=== PATIENT | female | born 1980 | race Caucasian/White ===

== ENCOUNTER 2023-09-09 16:42 | Outpatient (OUT) | payer OTHER, SELFPAY ==
--- NOTE | 2023-09-09 16:51 | XR_ITS ---
The [address] [address] Patient Name: GÓMEZ BONILLA MRN: [id number] date: 1980 Sex: F Assigned Patient Location: [facility] Current Patient Location: [facility] Accession/Order Number: [id number] Exam Date: 09/09/2023 17:00 Report Date: 09/09/2023 19:33 At the request of: PREM COLBY Procedure: XR knee LT 3V EXAM: XR knee LT 3V HISTORY: knee pain M25.569 COMPARISON: None. TECHNIQUE: 3 views of the left knee were obtained. FINDINGS: There is no evidence of an acute fracture or dislocation. The joint spaces are intact. No osteochondral injury is identified. There is no evidence of a joint effusion. XR/XR knee LT 3V IMPRESSION: No acute fracture or dislocation. The joint spaces are intact without a joint effusion. Electronically authenticated by: SOLEDAD STEEN Date: 09/09/2023 19:33
== END 2023-09-09 16:43 | disposition home or self-care (01) ==
LOC: RAD 16:45
PROVIDERS: PCP Family Medicine; Visit Provider Family Medicine
DX: M25.562 Pain in left knee (principal)
CPT/HCPCS: 73562

== ENCOUNTER 2023-10-23 11:46 | Outpatient (OUT) | payer OTHER, SELFPAY ==
--- OUTSIDE RECORDS SUMMARY | 2023-10-23 11:50 | XMS_ITS | CCD ---
Author Name Unknown Address [address] [place] [address] Organization [facility] Care Team Providers Care Autistic Teacher Name Role Phone SU SERNA Referring Unavailable SU SERNA Primary Care Unavailable ENRIQUE STACY Attending Unavailable Beatriz Patten Primary Care Physician MARTÍNEZ AVILA Attending Unavailable MARTÍNEZ AVILA Consulting Unavailable MARTÍNEZ AVILA Admitting Unavailable KETVERTSU ANDRES Primary Care Unavailable SU SERNA Attending Unavailable SU SERNA Consulting Unavailable KETVERTSU ANDRES Primary Care Unavailable SINDYVERTSU ANDRES Admitting Unavailable KETVERTSU ANDRES Attending Unavailable SU SERNA Referring Unavailable KETVERTSU ANDRES Referring Unavailable SINDYVERTSU ANDRES Attending Unavailable SindyvertSu andres MD Primary Care Provider [phone] Michele Rutledge Attending Unavailab le Michele Rutledge Admitting Unavailab le Daphne Su Primary Care Unavailable Allergies Allergy Classification Reported Allergen(s) Allergy Type Date of Onset Reaction(s) Facility (1 source) Acetaminophen Drug Allergy [facility] (1 source) Acetaminophen / HYDROcodone Drug Allergy 3 [facility] (1 source) buPROPion Drug Allergy 6 [facility] (1 source) pregabalin Drug Allergy 0 [facility] (3 sources) Acetaminophen Drug Allergy 3 [facility] (3 sources) Acetaminophen / HYDROcodone Drug Allergy 3 [facility] (3 sources) buPROPion Drug Allergy 3 [facility] (3 sources) HYDROcodone Drug Allergy 3 [facility] (3 sources) Pregabalin Allergy to substance 3 [facility] (2 sources) Morphine Drug Allergy 1 Itching [facility] (1 source) Acetaminophen Drug Allergy 2 [facility] Repository (1 source) buPROPion Drug Allergy 1 [facility] (1 source) HYDROcodone Drug Allergy 1 [facility] (1 source) Morphine Drug Allergy 1 [facility] (1 source) pregabalin Drug Allergy 1 [facility] Medications Current Medications Medication Drug Class(es) Dates Sig (Normalized) Sig (Original) acetaZOLAMIDE 250 mg oral tablet (3 sources) Carbonic Anhydrase Inhibitor Start: 09-09-2023 take 2 tablets by mouth once daily acetaZOLAMIDE (Diamox) 250 MG tablet Indications: Intracranial hypertension Take 2 tablets by mouth once daily. 180 tablet 1 09/09/2023 Active 1 ml erenumab-aooe 140 mg/ml auto-injector (3 sources) Start: 06-23-2023 inject 1 mL by subcutaneous injection every month erenumab (Aimovig) 140 MG/ML injection Indications: Other migraine without status migrainosus, not intractable (CMS/HCC) inject 1 milliliter ( 140 milligrams ) subcutaneously Every Month 1 mL 3 06/23/2023 Active famotidine 20 mg oral tablet (3 sources) Histamine-2 Receptor Antagonist Start: 08-30-2023 take 1 tablet by mouth at bedtime famotidine (Pepcid) 20 MG tablet Indications: Gastroesophageal reflux disease without esophagitis take 1 tablet by mouth at bedtime if needed 90 tablet 0 08/30/2023 Active hydrOXYzine pamoate 50 mg oral capsule (3 sources) Antihistamine Start: 08-27-2023 take 1 capsule by mouth three times daily hydrOXYzine pamoate (Vistaril) 50 MG capsule Indications: Anxiety take 1 capsule by mouth three times a day 270 capsule 0 08/27/2023 Active Ibuprofen (3 sources) Nonsteroidal Anti-inflammatory Drug Ibuprofen (MOTRIN PO ) Motrin 0 Active Multiple Vitamins-Minerals (MULTI FOR HER 50+ PO) (3 sources) Multiple Vitamins-Minerals (MULTI FOR HER 50+ PO) Multi For Her 0 Active nitrofurantoin, macrocrystals 25 mg / nitrofurantoin, monohydrate 75 mg oral capsule (2 sources) Nitrofuran Antibacterial Start: 09-28-2023 End: 10-12-2023 take 1 capsule by mouth in the morning nitrofurantoin, macrocrystal-monohydr ate, (Macrobid) 100 MG capsule Indications: Acute cystitis without hematuria Take 1 capsule (100 mg) by mouth in the morning and 1 capsule (100 mg) before bedtime. Do all this for 14 days. 28 capsule 0 09/28/2023 10/12/2023 Active SUMAtriptan 100 mg oral tablet (3 sources) Serotonin-1b and Serotonin-1d Receptor Agonist Start: 09-09-2023 take 1 tablet by mouth every two hours, then take 2 tablets by mouth every twenty-four hours SUMAtriptan (Imitrex) 100 MG tablet Indications: Other migraine without status migrainosus, not intractable (CMS/HCC) TAKE 1 TABLET BY MOUTH AT ONSET OF HEADACHE - MAY REPEAT IN 2 HOURS IF NEEDED - MAX 2 TABLETS IN 24 HOURS 27 tablet 1 09/09/2023 Active tiZANidine 4 mg oral tablet (3 sources) Central alpha-2 Adrenergic Agonist Start: 09-09-2023 take 2 tablets by mouth at bedtime as needed tiZANidine (Zanaflex) 4 MG tablet Indications: Muscle cramp Take 2 tablets by mouth at bedtime as needed. 60 tablet 2 09/09/2023 Active Problems Active Problems Problem Classification Problem Date Documented Da te Episodic/Chronic Abdominal pain (1 source) Epigastric pain; Translations: [EPIGASTRIC PAIN] Onset: 01-18-2023 Episodic Anxiety disorders (3 sources) Generalized anxiety disorder; Translations: [Generalized anxiety disorder] Onset: 04-01-2023 04-01-2023 Chronic Genitourinary symptoms and ill-defined conditions (3 sources) Incontinence; Translations: [Unspecified urinary incontinence] Onset: 04-01-2023 04-01-2023 Chronic Genitourinary symptoms and ill-defined conditions (4 sources) Dysuria; Translations: [Dysuria] 09-28-2023 Episodic Headache; including migraine (11 sources) Refractory migraine with aura; Translations: [Migraine with aura, intractable, without status migrainosus] Onset: 04-01-2023 04-01-2023 Chronic Immunizations and screening for infectious disease (1 source) Encounter for screening for infections with a predominantly sexual mode of transmission; Translations: [ENC SCREEN INFECTIONS SEXL TRANSMS] Onset: 01-18-2023 Episodic Lymphadenitis (2 sources) Hilar lymphadenopathy ; Translations: [Localized enlarged lymph nodes] 09-28-2023 Episodic Noninfectious gastroenteritis (2 sources) Chronic diarrhea; Translations: [Noninfective gastroenteritis and colitis, unspecified] 09-28-2023 Episodic Other connective tissue disease (5 sources) Fibromyalgia; Translations: [Fibromyalgia] Onset: 04-01-2023 04-01-2023 Episodic Other gastrointestinal disorders (2 sources) History of gastritis; Translations: [Personal history of other diseases of the digestive system] 09-28-2023 Episodic Other lower respiratory disease (2 sources) Dyspnea; Translations: [Shortness of breath] 09-28-2023 Episodic Other nervous system disorders (3 sources) Chiari malformation type I; Translations: [Compression of brain] Onset: 04-01-2023 04-01-2023 Chronic Other nervous system disorders (3 sources) Left leg peripheral neuropathy; Translations: [Meralgia paresthetica, left lower limb] Onset: 04-01-2023 04-01-2023 Chronic Other nervous system disorders (3 sources) Benign intracranial hypertension; Translations: [Benign intracranial hypertension] Onset: 04-01-2023 04-01-2023 Chronic Other nervous system disorders (2 sources) Raised intracranial pressure; Translations: [Benign intracranial hypertension] 09-28-2023 Chronic Other nervous system disorders (2 sources) Numbness of lower limb ; Translations: [Anesthesia of skin] 09-28-2023 Episodic Other non-traumatic joint disorders (2 sources) Pain in unspecified knee; Translations: [Pain in joint, lower leg] 09-28-2023 Episodic Other nutritional; endocrine; and metabolic disorders (3 sources) Obesity; Translations: [Obesity, unspecified] Onset: 04-01-2023 04-01-2023 Chronic Other nutritional; endocrine; and metabolic disorders (3 sources) Obesity caused by energy imbalance; Translations: [Other obesity due to excess calories] Onset: 04-01-2023 04-01-2023 Chronic Personality disorders (3 sources) Borderline personality disorder; Translations: [Borderline personality disorder] Onset: 04-01-2023 04-01-2023 Chronic Residual codes; unclassified (3 sources) Obstructive sleep apnea syndrome; Translations: [Obstructive sleep apnea (adult) (pediatric)] Onset: 04-01-2023 04-01-2023 Chronic Residual codes; unclassified (3 sources) Parasomnia; Translations: [Parasomnia, unspecified] Onset: 04-01-2023 04-01-2023 Chronic Suicide and intentional self-inflicted injury (1 source) Suicidal thoughts; Translations: [Suicidal ideations] Onset: 04-24-2022 Episodic Unclassified (2 sources) LOW BACK PAIN, UNSPECIFIED; Translations: [LOW BACK PAIN, UNSPECIFIED] Onset: 07-06-2022 Urinary tract infections (2 sources) Acute cystitis; Translations: [Acute cystitis without hematuria] 09-28-2023 Episodic Past or Other Problems Problem Classification Problem Date Documented Da te Episodic/Chronic E Codes: Natural/environment (1 source) Other and unspecified overexertion or strenuous movements or postures, initial encounter; Translations: [OTH AND UNS OVREXRT/STRN MVMT/POS INT] Onset: 07-06-2022 Episodic Other aftercare (1 source) Other prison (current) drug therapy; Translations: [OTH RESIDENTIAL CURRENT DRUG THERAPY] Onset: 07-06-2022 Episodic Other connective tissue disease (1 source) Arthrodesis status; Translations: [ARTHRODESIS STATUS] Onset: 07-06-2022 Episodic Other connective tissue disease (3 sources) Spasm of cervical paraspinous muscle; Translations: [Other muscle spasm] Onset: 04-01-2023 04-01-2023 Episodic Other upper respiratory disease (3 sources) Pharyngeal stenosis; Translations: [Other diseases of pharynx] Onset: 04-01-2023 04-01-2023 Episodic Residual codes; unclassified (3 sources) Hallucinations; Translations: [Hallucinations, unspecified] Onset: 04-01-2023 04-01-2023 Episodic Residual codes; unclassified (3 sources) Disturbance in sleep behavior; Translations: [Sleep disorder, unspecified] Onset: 04-01-2023 04-01-2023 Episodic Residual codes; unclassified (3 sources) High risk sexual behavior; Translations: [High risk heterosexual behavior] Onset: 04-19-2023 04-19-2023 Episodic Spondylosis; intervertebral disc disorders; other back problems (3 sources) Cervico-occipital neuralgia; Translations: [Occipital neuralgia] Onset: 04-01-2023 04-01-2023 Episodic Sprains and strains (4 sources) Strain of muscle, fascia and tendon of lower back, initial encounter; Translations: [Strain of neck muscle] Onset: 07-06-2022 04-01-2023 Episodic Unclassified (1 source) LOW BACK PAIN, UNSPECIFIED; Translations: [LOW BACK PAIN, UNSPECIFIED] Onset: 07-04-2022 Results Test Name Value Interpretation Reference Range Facility Laboratory - Chemistry and C hemistry - challengeon 09-28-2023 Bilirubin Ql (U) Negative [facility] Glucose [Mass/Vol] Negative [facility] Ketones Ql (U) Negative [facility] pH (U) 5.5 [pH] [facility] Specific gravity (U) [Rel density] 1.020 [facility] Urobilinogen (U) [Mass/Vol] 0.2 mg/dL [facility] Laboratory - Hematology and Cell countson 09-28-2023 Hemoglobin Ql (U) trace-intact [facility] Laboratory - Urinalysison Nitrite Ql (U) Negative [facility] Protein Ql (U) Negative [facility] No Panel Informationon 09-28 LEUKOCYTES moderate [facility] CT CHEST PULMONARY EMBOLISM W IV CONTRASTon 09-14-2023 CT CHEST PULMONARY EMBOLISM W IV CONTRAST CLINICAL HISTORY: Shortness of breath. Dyspnea. Technique: Spiral CTA acquisition of the chest from the thoracic inlet to the upper abdomen following IV contrast. Including MIP reconstructions in coronal and sagittal plane. Other sagittal and coronal reconstructions. Contrast: IV administration of 100 ml [address] scans at this facility use dose modulation, iterative reconstruction, and/or weight based dosing when appropriate to reduce radiation dose to as low as reasonably achievable. Comparison: Chest x-ray 12/02/2020. RESULT: Evaluation for thromboembolic disease: No evidence for thromboembolic disease in the main, lobar, segmental, and visualized subsegmental pulmonary arteries. No evidence for right heart strain. Lung parenchyma and pleura: Central airways are patent. No consolidation. No suspicious pulmonary nodules. No pleural effusion. No pneumothorax. Thoracic inlet, heart, and mediastinum: Visualized thyroid unremarkable. No axillary, mediastinal, or hilar lymphadenopathy. Calcified lymph nodes especially within the left hilar region and mediastinum. Normal thoracic aorta. Normal pulmonary artery size. Normal heart size. No coronary artery calcifications. No pericardial effusion or thickening. Esophagus nondilated. Bones: No acute osseous findings. No destructive osseous lesions. Soft tissues: Unremarkable. Upper abdomen: No acute abnormality in the imaged upper abdomen. Possible hepatic steatosis. Few small calcified granulomas in the imaged spleen. IMPRESSION: No CT evidence of acute pulmonary embolism or other acute process in the thorax. ELECTRONICALLY SIGNED BY: Stew Waterman MD Normal Not Available US PELVIC COMPLETE W/ TVon 0 09-10-2023 US PELVIC COMPLETE W/ TV Exam: US PELVIC COMPLETE W/ TV History: Pelvic pain, history of hysterectomy Technique: Sonography of the pelvis performed by transvaginal and transabdominal technique(s). Comparison: None. Result: Uterus: Hysterectomy. Vaginal cuff unremarkable. Right ovary: Not visualized. Left ovary: Size: 2.8 x 2.0 x 1.9 cm Complex cyst or solid mass: None. Free Fluid:None. IMPRESSION: Impression: Hysterectomy. Right ovary not visualized. Left ovary unremarkable. ELECTRONICALLY SIGNED BY: Stew Waterman MD Normal Not Available HEPATITIS PANEL, ACUTEon HBsAg Screen Negative Normal Negative [facility] Comment on above: Performed By: #### H EPACUT #### [facility] [address] [address] [address] Emilee Conner HCV AB Non-Reactive Normal Non Reactive [facility] Comment on above: Performed By: #### H EPACUT #### [facility] [address] [address] [address] Emilee Conner Hep A Ab, IgM Negative Normal Negative [facility] Comment on above: Performed By: #### H EPACUT #### [facility] [address] [address] [address] Emilee Conner Hep B Core Ab, IgM Negative Normal Negative [facility] Comment on above: Performed By: #### H EPACUT #### [facility] [address] [address] [address] Emilee Conner HIV 1 AND 2 WITH REFLEXon HIV Screen 4th Generation wRfx Non-Reactive Normal Non Reactive [facility] Comment on above: Result Comment: HIV Negative HIV-1/HIV-2 antibodies and HIV-1 p24 antigen were NOT detected. There is no laboratory evidence of HIV infection. Performed By: #### H IV12 #### [facility] [address] [address] [address] Emilee Conner RPR QUANTon 01-17-2023 Rapid Plasma Reagin, Quant Non-Reactive Normal NonRea<1:1 [facility] Comment on above: Result Comment: Plea se Note: This test does not meet current guidelines for screening and diagnosis of syphilis. This test is intended for following treatment response in patients being treated for syphilis infection. To screen for syphilis infection, a reflex cascade that includes both RPR and a treponema-specific assay should be utilized, such as Treponema pallidum (Syphilis) Screening [place] (307683) or Rapid Plasma Reagin (RPR) Test With Reflex to Quantitative RPR and Confirmatory Treponema pallidum Antibodies (669335). Performed By: #### R PRQ #### [facility] [address] [place] [address] Dr. Emilee Conner AMYLASEon 01-16-2023 Amylase [Catalytic activity/Vol] 46 U/L Normal 25-115 [facility] Comment on above: Performed By: #### L IPA, CMP, LIPID, TSH, BEATRIZ #### [facility] [address] [place] [address] Dr. Emilee Conner CBC AUTO DIFFon 01-16-2023 BASO # 0.0 103/ul Normal 0.0-0.1 [facility] Comment on above: Performed By: #### C BC #### [facility] [address] [place] [address] Dr. Emilee Conner Basophils/100 WBC (Bld) 0.5 % Normal 0.2-2.0 [facility] Comment on above: Performed By: #### C BC #### [facility] [address] [place] [address] Dr. Emilee Conner EO # 0.2 103/ul Normal 0.0-0.7 [facility] Comment on above: Performed By: #### C BC #### [facility] [address] [place] [address] Dr. Emilee Conner Eosinophils/100 WBC (Bld) 2.1 % Normal 0.9-7.0 [facility] Comment on above: Performed By: #### C BC #### [facility] [address] [place] [address] Dr. Emilee Conner Erythrocyte distribution width (RBC) [Ratio] 14.2 % Normal 11.0-15.0 [facility] Comment on above: Performed By: #### C BC #### [facility] [address] [place] [address] Dr. Emilee Conner Hematocrit (Bld) [Volume fraction] 38.1 % Normal 36.0-48.0 [facility] Comment on above: Performed By: #### C BC #### [facility] [address] [place] [address] Dr. Emilee Conner Hemoglobin (Bld) [Mass/Vol] 12.4 g/dL Normal 12.0-16.0 [facility] Comment on above: Performed By: #### C BC #### [facility] [address] [place] [address] Dr. Emilee Conner IG # 0.02 10e3/ul Normal 0.00-0.03 [facility] Comment on above: Performed By: #### C BC #### [facility] [address] [place] [address] Dr. Emilee Conner IG % 0.2 % Normal 0.0-0.5 [facility] Comment on above: Performed By: #### C BC #### [facility] [address] [place] [address] Dr. Emilee Conner LYMPH # 2.2 103/ul Normal 1.2-3.8 [facility] Comment on above: Performed By: #### C BC #### [facility] [address] [place] [address] Dr. Emilee Conner Lymphocytes/100 WBC (Bld) 27.0 % Normal 20.5-60.0 [facility] Comment on above: Performed By: #### C BC #### [facility] [address] [place] [address] Dr. Emilee Conner MANUAL DIFF REQ NO Normal [facility] Comment on above: Performed By: #### C BC #### [facility] [address] [place] [address] Dr. Emilee Conner MCH (RBC) [Entitic mass] 27.0 pg Normal 26.7-34.0 [facility] Comment on above: Performed By: #### C BC #### [facility] [address] [place] [address] Dr. Emilee Conner MCHC (RBC) [Mass/Vol] 32.5 g/dL Normal 29.9-35.2 [facility] Comment on above: Performed By: #### C BC #### [facility] [address] [place] [address] Dr. Emilee Conner MCV (RBC) [Entitic vol] 83.0 fL Normal 81.0-99.0 [facility] Comment on above: Performed By: #### C BC #### [facility] [address] [place] [address] Dr. Emilee Conner MONO # 0.7 103/ul Normal 0.3-0.8 [facility] Comment on above: Performed By: #### C BC #### [facility] [address] [place] [address] Dr. Emilee Conner Monocytes/100 WBC (Bld) 8.3 % Normal 1.7-12.0 [facility] Comment on above: Performed By: #### C BC #### [facility] [address] [place] [address] Dr. Emilee Conner NEUT # 5.0 103/ul Normal 1.4-6.5 [facility] Comment on above: Performed By: #### C BC #### [facility] [address] [place] [address] Dr. Emilee Conner Neutrophils/100 WBC (Bld) 61.9 % Normal 43.0-75.0 [facility] Comment on above: Performed By: #### C BC #### [facility] [address] [place] [address] Dr. Emilee Conner Platelet mean volume (Bld) [Entitic vol] 9.8 fL Normal 9.5-13.5 [facility] Comment on above: Performed By: #### C BC #### [facility] [address] [place] [address] Dr. Emilee Conner PLT 412 103/ul Normal 150-450 [facility] Comment on above: Performed By: #### C BC #### [facility] [address] [place] [address] Dr. Emilee Conner RBC 4.59 106/ul Normal 4.20-5.40 [facility] Comment on above: Performed By: #### C BC #### [facility] [address] [place] [address] Dr. Emilee Conner WBC 8.1 103/ul Normal 4.0-11.0 [facility] Comment on above: Performed By: #### C BC #### [facility] [address] [place] [address] Dr. Emilee Conner FREE T4on 01-16-2023 Free T4 [Mass/Vol] 0.86 ng/dL Normal 0.76-1.46 [facility] Comment on above: Performed By: #### C MP #### [facility] [address] [place] [address] Dr. Emilee Conner LIPASEon 01-16-2023 Lipase [Catalytic activity/Vol] 154.0 U/L Normal 73.0-393.0 [facility] Comment on above: Performed By: #### L IPA, CMP, LIPID, TSH, BEATRIZ #### [facility] [address] [place] [address] Dr. Emilee Conner LIPID PROFILEon 01-16-2023 CHOL-HDL RATIO NORM SEE BELOW Normal [facility] Comment on above: Result Comment: 3.3 - 4.4 LOW RISK 4.4 - 7.1 AVERAGE RISK 7.1 - 11.0 MODERATE RISK >11.0 HIGH RISK Performed By: #### C MP #### [facility] [address] [place], [place] [address] Dr. Emilee Conner Cholesterol [Mass/Vol] 222 mg/dL Critically high <=200 [facility] Comment on above: Performed By: #### C MP #### [facility] [address] [place], [place] [address] Dr. Emilee Conner Cholesterol in HDL [Mass/Vol] 49 mg/dL Normal 40-60 [facility] Comment on above: Performed By: #### C MP #### [facility] [address] [address] [address] Emilee Conner Cholesterol in LDL [Mass/Vol] 159.8 mg/dL Normal [facility] Comment on above: Performed By: #### C MP #### [facility] [address] [address] [address] Emilee Conner Cholesterol.total/Choles terol in HDL [Mass ratio] 4.5 {ratio} Normal [facility] Comment on above: Performed By: #### C MP #### [facility] [address] [address] [address] Emilee Conner HDL NORMAL > or = 60 mg/dl - LOW CARDIOVASCULAR RISK <40 mg/dl - HIGH CARDIOVASCULAR RISK Normal [facility] Comment on above: Performed By: #### C MP #### [facility] [address] [address] [address] Emilee Conner LDL CALC NORMAL SEE BELOW Normal [facility] Comment on above: Result Comment: <100 mg/dl OPTIMAL 100 - 129 mg/dl NEAR OR ABOVE OPTIMAL 130 - 159 mg/dl BORDERLINE HIGH 160 - 189 mg/dl HIGH >190 mg/dl VERY HIGH Performed By: #### C MP #### [facility] [address] [address] [address] Emilee Conner Triglyceride [Mass/Vol] 66 mg/dL Normal <=150 [facility] [place] Comment on above: Performed By: #### C MP #### [facility] [address] [address] [address] Emilee Conner VLDL CALC 13.2 mg/dL Normal [facility] Comment on above: Performed By: #### C MP #### [facility] [address] [address] [address] Emilee Conner PROF 14(COMP METB)on 023 Albumin [Mass/Vol] 3.7 g/dL Normal 3.4-5.0 [facility] Comment on above: Performed By: #### C MP #### [facility] [address] [place] [address] Dr. Emilee Conner Albumin/Globulin [Mass ratio] 0.9 {ratio} Normal [facility] Comment on above: Performed By: #### C MP #### [facility] [address] [place] [address] Dr. Emilee Conner ALP [Catalytic activity/Vol] 92 U/L Normal 46-116 [facility] Comment on above: Performed By: #### C MP #### [facility] [address] [place] [address] Dr. Emilee Conner ALT [Catalytic activity/Vol] 27 U/L Normal 14-59 [facility] Comment on above: Performed By: #### C MP #### [facility] [address] [place] [address] Dr. Emilee Conner Anion gap [Moles/Vol] 13.8 mmol/L Normal [facility] Comment on above: Performed By: #### C MP #### [facility] [address] [place] [address] Dr. Emilee Conner AST [Catalytic activity/Vol] 18 U/L Normal 15-37 [facility] Comment on above: Performed By: #### C MP #### [facility] [address] [place] [address] Dr. Emilee Conner Bilirubin [Mass/Vol] 0.3 mg/dL Normal 0.2-1.0 [facility] Comment on above: Performed By: #### C MP #### [facility] [address] [place] [address] Dr. Emilee Conner Calcium [Mass/Vol] 9.1 mg/dL Normal 8.5-10.1 [facility] Comment on above: Performed By: #### C MP #### [facility] [address] [address] [address] Emilee Conner Chloride [Moles/Vol] 109 mmol/L Critically high 98-107 [facility] Comment on above: Performed By: #### C MP #### [facility] [address] [address] [address] Emilee Conner CO2 [Moles/Vol] 21.8 mmol/L Normal 21.0-32.0 [facility] Comment on above: Performed By: #### C MP #### [facility] [address] [address] [address] Emilee Conner Creatinine [Mass/Vol] 0.80 mg/dL Normal 0.55-1.02 [facility] Comment on above: Performed By: #### C MP #### [facility] [address] [place] [address] Dr. Emilee Conner EGFR-AF PALAUAN >60 Normal >=60 [facility] Comment on above: Performed By: #### C MP #### [facility] [address] [address] [address] Emilee Conner EGFR-NON AF PALAUAN >60 Normal >=60 [facility] Comment on above: Performed By: #### C MP #### [facility] [address] [address] [address] Emilee Conner Globulin (S) [Mass/Vol] 4.0 g/dL Normal [facility] Comment on above: Performed By: #### C MP #### [facility] [address] [address] [address] Emilee Conner Glucose [Mass/Vol] 112 mg/dL Critically high 74-106 [facility] Comment on above: Performed By: #### C MP #### [facility] [address] [address] [address] Emilee Conner Potassium [Moles/Vol] 3.6 mmol/L Normal 3.5-5.1 [facility] Comment on above: Performed By: #### C MP #### [facility] [address] [address] [address] Emilee Conner Protein [Mass/Vol] 7.7 g/dL Normal 6.4-8.2 [facility] Comment on above: Performed By: #### C MP #### [facility] [address] [place] [address] Dr. Emilee Conner Sodium [Moles/Vol] 141 mmol/L Normal 136-145 [facility] Comment on above: Performed By: #### C MP #### [facility] [address] [place] [address] Dr. Emilee Conner Urea nitrogen [Mass/Vol] 14.0 mg/dL Normal 7.0-18.0 [facility] Comment on above: Performed By: #### C MP #### [facility] [address] [place] [address] Dr. Emilee Conner Urea nitrogen/Creatinine [Mass ratio] 17.5 mg/mg Normal [facility] Comment on above: Performed By: #### C MP #### [facility] [address] [place] [address] Dr. Emilee Conner TSHon 01-16-2023 TSH 1.854 uIU/mL Normal 0.358-3.740 [facility] Comment on above: Performed By: #### L IPA, CMP, LIPID, TSH, BEATRIZ #### [facility] [address] [place] [address] Dr. Emilee Conner CBC AUTO DIFFon 07-04-2022 BASO # 0.1 103/ul Normal 0.0-0.1 [facility] Comment on above: Performed By: #### C MP #### [facility] [address] [place] [address] Dr. Emilee Conner Basophils/100 WBC (Bld) 0.6 % Normal 0.2-2.0 [facility] Comment on above: Performed By: #### C MP #### [facility] [address] [place] [address] Dr. Emilee Conner EO # 0.3 103/ul Normal 0.0-0.7 [facility] Comment on above: Performed By: #### C MP #### [facility] [address] [place] [address] Dr. Emilee Conner Eosinophils/100 WBC (Bld) 2.4 % Normal 0.9-7.0 [facility] Comment on above: Performed By: #### C MP #### [facility] [address] [place] [address] Dr. Emilee Conner Erythrocyte distribution width (RBC) [Ratio] 13.3 % Normal 11.0-15.0 [facility] Comment on above: Performed By: #### C MP #### [facility] [address] [place] [address] Dr. Emilee Conner Hematocrit (Bld) [Volume fraction] 37.8 % Normal 36.0-48.0 [facility] Comment on above: Performed By: #### C MP #### [facility] [address] [place] [address] Dr. Emilee Conner Hemoglobin (Bld) [Mass/Vol] 12.3 g/dL Normal 12.0-16.0 [facility] Comment on above: Performed By: #### C MP #### [facility] [address] [place] [address] Dr. Emilee Conner IG # 0.04 10e3/ul Critically high 0.00-0.03 [facility] Comment on above: Performed By: #### C MP #### [facility] [address] [place] [address] Dr. Emilee Conner IG % 0.4 % Normal 0.0-0.5 [facility] Comment on above: Performed By: #### C MP #### [facility] [address] [place] [address] Dr. Emilee Conner LYMPH # 3.7 103/ul Normal 1.2-3.8 [facility] Comment on above: Performed By: #### C MP #### [facility] [address] [place] [address] Dr. Emilee Conner Lymphocytes/100 WBC (Bld) 32.9 % Normal 20.5-60.0 [facility] Comment on above: Performed By: #### C MP #### [facility] [address] [place] [address] Dr. Emilee Conner MANUAL DIFF REQ NO Normal [facility] Comment on above: Performed By: #### C MP #### [facility] [address] [place] [address] Dr. Emilee Conner MCH (RBC) [Entitic mass] 27.9 pg Normal 26.7-34.0 [facility] Comment on above: Performed By: #### C MP #### [facility] [address] [place] [address] Dr. Emilee Conner MCHC (RBC) [Mass/Vol] 32.5 g/dL Normal 29.9-35.2 [facility] Comment on above: Performed By: #### C MP #### [facility] [address] [place] [address] Dr. Emilee Conner MCV (RBC) [Entitic vol] 85.7 fL Normal 81.0-99.0 [facility] Comment on above: Performed By: #### C MP #### [facility] [address] [place] [address] Dr. Emilee Conner MONO # 1.0 103/ul Critically high 0.3-0.8 [facility] Comment on above: Performed By: #### C MP #### [facility] [address] [place] [address] Dr. Emilee Conner Monocytes/100 WBC (Bld) 8.6 % Normal 1.7-12.0 [facility] Comment on above: Performed By: #### C MP #### [facility] [address] [place] [address] Dr. Emilee Conner NEUT # 6.1 103/ul Normal 1.4-6.5 [facility] Comment on above: Performed By: #### C MP #### [facility] [address] [place] [address] Dr. Emliee Conner Neutrophils/100 WBC (Bld) 55.1 % Normal 43.0-75.0 [facility] Comment on above: Performed By: #### C MP #### [facility] [address] [place] [address] Dr. Emilee Conner Platelet mean volume (Bld) [Entitic vol] 9.0 fL Critically low 9.5-13.5 [facility] Comment on above: Performed By: #### C MP #### [facility] [address] [place] [address] Dr. Emilee Conner PLT 375 103/ul Normal 150-450 [facility] Comment on above: Performed By: #### C MP #### [facility] [address] [place] [address] Dr. Emilee Conner RBC 4.41 106/ul Normal 4.20-5.40 [facility] Comment on above: Performed By: #### C MP #### [facility] [address] [place] [address] Dr. Emilee Conner WBC 11.1 103/ul Critically high 4.0-11.0 [facility] Comment on above: Performed By: #### C MP #### [facility] [address] [place] [address] Dr. Emilee Conner CPKon 07-04-2022 CK [Catalytic activity/Vol] 77 U/L Normal 26-192 [facility] Comment on above: Performed By: #### C MP #### [facility] [address] [place] [address] Dr. Emilee Conner CRPon 07-04-2022 CRP [Mass/Vol] mg/L Normal <=1.0 [facility] Comment on above: Performed By: #### C RP #### [facility] [address] [place] [address] Dr. Emilee Conner ER URINE PROFILEon 2 Bilirubin Ql (U) Negative Normal NEGATIVE [facility] Comment on above: Performed By: #### C MP #### [facility] [address] [place] [address] Dr. Emilee Conner Clarity (U) CLEAR Normal CLEAR [facility] Comment on above: Performed By: #### C MP #### [facility] [address] [place] [address] Dr. Emilee Conner Color (U) LT. YELLOW Normal YELLOW [facility] Comment on above: Performed By: #### C MP #### [facility] [address] [place] [address] Dr. Emilee COLON A micrscopic examination will be performed if indicated. Normal [facility] Comment on above: Performed By: #### C MP #### [facility] [address] [place] [address] Dr. Emilee Conner Glucose Ql (U) Negative Normal NEGATIVE [facility] Comment on above: Performed By: #### C MP #### [facility] [address] [place] [address] Dr. Emilee Conner Hemoglobin Ql (U) TRACE-INTACT Abnormal NEGATIVE [facility] Comment on above: Performed By: #### C MP #### [facility] [address] [place] [address] Dr. Emilee Conner Ketones Ql (U) Negative Normal NEGATIVE [facility] Comment on above: Performed By: #### C MP #### [facility] [address] [place] [address] Dr. Emilee Conner LEUKOCYTES TRACE Abnormal NEGATIVE [facility] Comment on above: Performed By: #### C MP #### [facility] [address] [place] [address] Dr. Emilee Conner Nitrite Ql (U) Negative Normal NEGATIVE [facility] Comment on above: Performed By: #### C MP #### [facility] [address] [place] [address] Dr. Emilee Conner pH (U) 6.0 [pH] Normal 5-9 [facility] Comment on above: Performed By: #### C MP #### [facility] [address] [place] [address] Dr. Emilee Conner SPEC GRAVITY <=1.005 Abnormal 1.005-<=1.02 5 [facility] Comment on above: Performed By: #### C MP #### [facility] [address] [place] [address] Dr. Emilee Conner UA PROTEIN Negative Normal NEGATIVE/ TRACE [facility] Comment on above: Performed By: #### C MP #### [facility] [address] [place] [address] Dr. Emilee Conner UR MICRO IND INDICATED Normal [facility] Comment on above: Performed By: #### C MP #### [facility] [address] [place] [address] Dr. Emilee Conner Urobilinogen Qn (U) 0.2 {Simba'U}/dL Normal 0.2 - 1. 0 [facility] Comment on above: Performed By: #### C MP #### [facility] [address] [place] [address] Dr. Emilee Conner MYOGLOBINon 07-04-2022 FORREST 42 ng/mL Normal 9-82 [facility] Comment on above: Performed By: #### C MP #### [facility] [address] [place] [address] Dr. Emilee Conner PROF 14(COMP METB)on 022 Albumin [Mass/Vol] 3.6 g/dL Normal 3.4-5.0 [facility] Comment on above: Performed By: #### C MP #### [facility] [address] [place] [address] Dr. Emilee Conner Albumin/Globulin [Mass ratio] 0.9 {ratio} Normal [facility] Comment on above: Performed By: #### C MP #### [facility] [address] [place] [address] Dr. Emilee Conner ALP [Catalytic activity/Vol] 108 U/L Normal 46-116 [facility] Comment on above: Performed By: #### C MP #### [facility] [address] [place] [address] Dr. Emilee Conner ALT [Catalytic activity/Vol] 28 U/L Normal 14-59 [facility] Comment on above: Performed By: #### C MP #### [facility] [address] [place] [address] Dr. Emilee Conner Anion gap [Moles/Vol] 11.2 mmol/L Normal [facility] Comment on above: Performed By: #### C MP #### [facility] [address] [address] [address] Emilee Conner AST [Catalytic activity/Vol] 15 U/L Normal 15-37 [facility] Comment on above: Performed By: #### C MP #### [facility] [address] [address] [address] Emilee Conner Bilirubin [Mass/Vol] 0.1 mg/dL Critically low 0.2-1.0 [facility] Comment on above: Performed By: #### C MP #### [facility] [address] [address] [address] Emilee Conner Calcium [Mass/Vol] 8.9 mg/dL Normal 8.5-10.1 [facility] Comment on above: Performed By: #### C MP #### [facility] [address] [address] [address] Emilee Conner Chloride [Moles/Vol] 105 mmol/L Normal 98-107 [facility] Comment on above: Performed By: #### C MP #### [facility] [address] [address] [address] Emilee Conner CO2 [Moles/Vol] 23.8 mmol/L Normal 21.0-32.0 [facility] Comment on above: Performed By: #### C MP #### [facility] [address] [address] [address] Emilee Conner Creatinine [Mass/Vol] 0.76 mg/dL Normal 0.55-1.02 [facility] Comment on above: Performed By: #### C MP #### [facility] [address] [address] [address] Emilee Conner EGFR-AF PALAUAN >60 Normal >=60 [facility] Comment on above: Performed By: #### C MP #### [facility] [address] [address] [address] Emilee Conner EGFR-NON AF PALAUAN >60 Normal >=60 [facility] Comment on above: Performed By: #### C MP #### [facility] [address] [place] [address] Dr. Emilee Conner Globulin (S) [Mass/Vol] 4.1 g/dL Normal [facility] Comment on above: Performed By: #### C MP #### [facility] [address] [address] [address] Emilee Conner Glucose [Mass/Vol] 82 mg/dL Normal 74-106 [facility] Comment on above: Performed By: #### C MP #### [facility] [address] [address] [address] Emilee Conner Potassium [Moles/Vol] 3.0 mmol/L Critically low 3.5-5.1 [facility] Comment on above: Performed By: #### C MP #### [facility] [address] [place] [address] Dr. Emilee Conner Protein [Mass/Vol] 7.7 g/dL Normal 6.4-8.2 [facility] Comment on above: Performed By: #### C MP #### [facility] [address] [place] [address] Dr. Emilee Conner Sodium [Moles/Vol] 137 mmol/L Normal 136-145 [facility] Comment on above: Performed By: #### C MP #### [facility] [address] [place] [address] Dr. Emilee Conner Urea nitrogen [Mass/Vol] 16.0 mg/dL Normal 7.0-18.0 [facility] Comment on above: Performed By: #### C MP #### [facility] [address] [place] [address] Dr. Emilee Conner Urea nitrogen/Creatinine [Mass ratio] 21.1 mg/mg Normal [facility] Comment on above: Performed By: #### C MP #### [facility] [address] [place] [address] Dr. Emilee Conner SED RATE [facility] 2021 SED RATE 17 mm/hr Normal <=20 [facility] Comment on above: Performed By: #### S EDR #### [facility] [address] [place] [address] Dr. Emilee Conner URINE MICROSCOPIC ONLYon BACTERIA TRACE Abnormal NONE SEEN [facility] Comment on above: Performed By: #### C MP #### [facility] [address] [place] [address] Dr. Emilee Conner Bacteria identified Cx Nom (U) NOT INDICATED Normal [facility] Comment on above: Performed By: #### C MP #### [facility] [address] [place] [address] Dr. Emilee Conner CAST NONE SEEN Normal NONE SEEN [facility] Comment on above: Performed By: #### C MP #### [facility] [address] [place] [address] Dr. Emilee Conner Crystals LM Nom (Urine sed) NONE SEEN Normal NONE SEEN [facility] Comment on above: Performed By: #### C MP #### [facility] [address] [place] [address] Dr. Emilee Conner Epithelial cells LM Ql (Urine sed) RARE Normal NONE SEEN /RARE [facility] Comment on above: Performed By: #### C MP #### [facility] [address] [place] [address] Dr. Emilee Conner MUCOUS NONE SEEN Normal NONE SEEN [facility] Comment on above: Performed By: #### C MP #### [facility] [address] [place] [address] Dr. Emilee Conner RBC 0-2 Normal 0-2 [facility] Comment on above: Performed By: #### C MP #### [facility] [address] [place] [address] Dr. Emilee Conner WBC 2-5 Abnormal NONE SEEN [facility] Comment on above: Performed By: #### C MP #### [facility] [address] [place] [address] Dr. Emilee Conner Coding Summary.on 04-28-2022 Coding Summary. CD:[id number]+PGhlYWQ+PE1 ILVCdV01biCQaeS7AO1 qTMP8UCDFNVXSQUH5CD P8gnEP0UVkrL1FwwaZh DtkxfYUkVX29ABo8FOE 7bEibXNmhoK8olYQuF5 y8CnBsLQ14mQ44WSbrL IChJmF7XmIfxogacXVs Q4pfImDmdAIgDfe+PHR hYmxlIHdpZHRoPScxMD WsZmGdxMeuJO0qHl9bG GVyLWNvbGxhcHNlOiBj i1ekCSImVVzxZE3lbYi aC1IpgZJ1DNIgg0s9Sc 48dHI+JPLjXXM3dQjhH Fiay880YpGwb7voJUJ6 zEJuHBtrFLJ1W13be1X 1TFLaZDZhBQW7vJI3rZ 5lgDwfnrdkC7NwzAVvN cI9CBO4hCNjiB4dkXyl ptuzmK1bRya+Q22CAT1 LMZWHQW6LRrm6H5SmEg wvdHI+FH75ZIQnGB85k HLcpUGtr6kzmQi0WsBj XKNrIEZ6xJcyCVunp1D tLFHwA09kmNMrn0K4JA UioUvqhFFeNpFgeHU2v W9sIRyforrrb5ubgzkt Gyvsv5zbdi97lG83C91 wEGkpUDUgDTR4OSMoOC FigJeimh2leP0vFv0+I Tlsd3pwe2ghkIh5DsYp YQRijlWopGkjLBF6k3P wEu73E2UatDxqe0PyDw p8vy38sCSpl1C7dQB6I JsaAZFjeK9eZWoyEmV5 JOEvAqQlyT39iCZtADa gPc1eoTvifEurXO5jNT PglonmTSYclQ7yMTJjg OUatYgkWL6eRCNlxtbj x806ErDmZZS8WOBgqMP vX3WcqN7zFsXiTDCzJR XwU3XboSDhPSdfK388C AygHeM7JBUjjuEbG8Gu IDZfjZwaFcJ5y4C3Kf9 Zc6JywxjfIPF1JJbsRC S3PhI6OsNnQiY3P3TrO ma8GMHohKsnLL3aQ0Mo IGRudranyogrwOS9DJV iPANzlP72yAKtDYdkHt 9ba9V7l235WKPkOPMkf T33Uv9xuGzrWVClqQPP iG7ggpuvt1rjlhymXwH zMRByARu5LTg7OLFcwI lgPqKyWUN4RlV3EBB3z JApsY4xiYuvlcgqfE7y Oyc+A35tmK2zXJY8JZG 3rmtcJDWbopZlTY34NA 49U4FdUlhhyTMkzVQ+P IBvpoXyaRwsBP9vBfOl m3jje9QtYBlxQ6PaZZU hIUgvYke6SNTyBUU6eM X0sL8cADVqBFklc7F0n OY2F4GpshWtkc0ml9wb QMUrJQswW29qcMVlm4V 3RAYgtQG3ROHecDxhSv SgdL61Mmg+PGNvbGdyb 9CtDiezm8fwz1eyrJp2 IjMwJSIgdmFsaWduPSJ 7j4EcOi47L16aGTbnWZ RoPSIxNSUiIHZhbGlnb q7udJ1pLr7+PGNvbCB3 aJT9bK9bYEMoIxW0UYz wB902XxQfhBIiXqaqv2 uqr4qefDf1NnSbFYPho hSwvMqlBCR7w6PgSz84 G11aLGryWPCkADNaNGP bOYZqnSffac7tuQ6uDo 8+OU6sx7luop37nE51z HI+JBFoOLU1xRtuRDbl RKPhqH6mOTjgTfX7AHC rUlMheI28xEFgSWutVm 0wdDncpRqcAF5sXPIeh mxmc664FsJgq6rjFWTx vCCzBZruIFQ9M07oa4X 7FKDwSRXwXJA2bMT2nS 1hbGlnbjogbGVmdDsgd bPtnClgMHhhYXctE438 IHRvcDsnPlBhdGllbnQ bMvIxXWg6G1YySfv7DJ EgnHxxOW2bqICpIJidG m7ijRkfeCmoTY0lFVWo rvzun075FxMyo6fyMFC dtAIoBScmEBC7L47mh4 S9GVQmKCGcZOD3mNM4f I0ibEjlhelipJYjbGfl yoGcrTgfXHnaLAxgC94 6IHRvcDsnPkJpcnRoIE YgpVW0SV96BX56zVAfz 0R5uFW2W8NbJOKnbvie wsxxbKT7PLClDVBseB1 6Ak8tnUbrTe7rZTFaJL G8PQHysMOfP4HbyB0sP cDwCHDoGTDyR5FxgSPo QVrwS985KKjdCgU0OYC zlbLqF1OtAWNswArqOk I8f7W5Kq0OX4Q6OK56P L14oYArv8W9vCW1W3Yw WSLifdnfhzgthNU9RFV mEDOnlX67Kr5wlWhzSa 6sKPToDOE9CSGnfLEnP 7YwhH1dUgGzPYIbPGEc T3GroEZeCEinZ680TKi fRiA3JIHnbbSgJ0WhOK NnnOzbVfD3m8P5Vp3WT Tq5MQ44GW61hGEvf2M6 aFA4V9FyUILspsskocq tdPP0RHNzEWXqhH60Du 0knJqjEh0nEAHyAHS0I EOrsFVlZ4QjxO4oPxIo TKBcCYAqW6DpnXUvNWs rN914YJaxGyB1DQVgar IeC7GkWRAbcUhzViU9b 4R5Ds3EJURjEF82FIZ2 pRU4JL91QO14D5LwXor vdGFibGU+PHRhYmxlIH dpZHRoPScxMDAlJyBzd AgsNB1rNu5eANTvZUXn tAevkLNxFvUlu5heBEY zTBfoIF0zzNyjX2GzwY H0VZDsu6f7Ue91I68yL 3JvdXA+CBThsEA9eJF9 mI0qJfQmTdK2FWqhY37 5RcMjjFDjGbgxl8zfy7 jfdEy8UhP9ALXuhnRwr YlyEPN0a6OxQt48M47f IHdpZHRoPSIxNSUiIHZ qpEaici6oaE5vSa7+PG YpkZZ4gVM9jS0uKtDnW cH0WGerR270FgMsmUAv Rpsrg0yjx5pxzYh8PoD oQQOjhzGpqBboDWP3a4 DvGq39Y9EgsLqnb0KkT rv8ef07oNHpr5J1fNC9 B8TbUPKhauvvkXCqbTk sTH3tRZQfuplsTNQagR 8bXTEeV6u2BrBjIcK1W XvyB9MocqL4VVSnqXAc IIdkPWY4J36zm7J7NNB nGQFxRLS0aPM5lD3gnH lnbjogbGVmdDsgdmVyd XvkZBsxAWimU717EGDc aAxaMFVwpA2yBQYmgYU ggMurTC2dBBTtdpnhTp IGKAHQTNBUSOUZBHg9A 6BiWsr0JIAtdKvoKU7t gGLwQDykSj2tsMvquEu pQF3vAFPsppygXXAgvK 9wWHQqgOYxdJmrOR6mL CXfhjiae001FuDtGUL4 IAUkxIKzD9WlfB3aDzW yKIGxYWUhW7EpmEOoDM dxH140ENcfKlT2TMYlm kFlY5BiHUDsxYtdXnO6 k3T1Xl8pBB6fCY1wXEf wPY83NO32iSGlx8C7oD C8E2YsDXQccapewbnjv VH0CLSgCJDxbZ72cEFz GAwdCv8wz1P4y126KJU cQXTjyI48Rs3nkFirUC IgpPCBwN7fbhzxp3wsu lsvYqCwAOHpFYk9LIq4 WRQkrBjvPzBtNQI2BsO 0AQR5cGPjpL5peQuile cbzC3hDdx+MzkgWWVhc kE2B0XyPyn4ILWpaFqp ZG6mjZItFAocUj6svAb nvVbzBI7aYWTrdzaiSQ WivI1oHDQcyJGfsFovB T0wXITvywxrt816YpAa XGF2DNDtkRHiH1DjfZ5 wNsXkVXHjCZZeQ6BryY NkXAcbC229UCmbIwX1I QScetCuQ2GvIMJcoKtm QsU7h1X9Fk1DTD0fiUE 6X9FzOmv7OVBtpEffCK 7upUZeOFadEq3liTmvf JjjES5uOUNkhhbuCVJx kD0vKKUrkPSkaObsCT1 iITYoczvgj250YuVhHJ B1WYOsuUNeM9BhqP4oQ hMmMMBlRUFiE1CzdYVv YHxyL434QVzkPkM4GJM ybnJdO8FbPHHwhXlcTu I8w0H5Tr0KqJOrF1DbQ 0b2O2BcYjvsgPA+PC90 QJZbUO29qPYeoTIsc5y smKn1YhTcPHTiBCC0tN vyKUpiz4NlESBpR29xx DClx3O3SAMzoTpecDAm FvVhfPF6eX5yYQzpbbz dx9vbcxjlKozze8drtj 57iO52N71rCMgdVGJoK AZnOKDtDZHviVxhaw0r rL9iYm2+RTFbvAO6dZD 8zY3rLeQmNgZ6IXumE2 27MgJgeTZrPjyfv5uym 5tvqXo5ViGoKTIpfpVq iStfQIP8j6XaPf76P33 sIHdpZHRoPSIyMCUiIH UjaKddrr4kbI0vUi8+P N8dm5gttc79qG64oIH+ UKWdAPB3wVolLHefTEC ggI2zRBayWaE9PMZdRr ZdyN58zRScGAtcEr6lf VarkJzwQD4rDASdzuda t341JsIob5ooIQJmrUE yCXvhVAV5P46dt4J3TZ FqYCVcOYJ9mFF4qG3ar GlnbjogbGVmdDsgdmVy sLghNZgfODatA870RGL ndEyoKzHotVYlD4ugim TOHY9cJfmnzFI+PHRkI RK1aMuwVLtgPDFtnU6z PXUlO2r7CdLxVrL1BEn iD4CckjW8EQZmvIQsVL YjzGGExT4jzouht1ohf okxJyFtPCDgBHa9UQj9 AQKcfGyhVnAeEOQ3UyT 8LDL5gRZteX2zrGnxme whtK8vTie+RklOOjwvd GQ+YWJwGCP1xJbfPRvo ATWgiN3xWDXdX1x4NiO gGwW4IPmoI3CvvuQ8HD KifJZuIEJzhLXKsZ9mg facu5eomknbHvJyPWLq GCj0XTf9COGprUmeCdH rEDJ8NdN5XSZ0pXVhvD 5soZfhwcdunI1mRap+T VJOOjwvdGQ+PHRkIHN0 vRbfTIoyDTZrpY1fDDW vX8u4VqWmJfM6HLxhZ8 JgamL2GBIvtCAlQGVyl HGYlC0hwsrah8xwonfa EhMzGHVqKBc2HDi0GUQ nkEszNiXoAXX4JiV6AX I5dHOgxY9zfMsikdxrd G9wOyc+YWG8YQT6CQ45 ZE23Q0WrFhtjwZAwrGA +PHRhYmxlIHdpZHRoPS yjVIHxOfFtpBhaRE3mQ u4yLSQcWMFurEfkaPKd OiBj (more content not included)... [facility] ED Note-Physicianon 04-25-20 ED Note-Physician Basic Information Time Seen: Stiven Borrego PA-C 04/24/2022 08:57 Chief Complaint pt reports she has had SI since wednesday, reports her plan is to take all of her muscle relxers. pt denies HI. pt reports that she ended an affair and left her this week and that has triggered her SI. reports anxiety. History of Present Illness 41-year-old female comes to the ED for evaluation of suicidal ideations. It sounds as has a history of depression anxiety. She does have remote attempts at self-harm. She has had increased stress in her personal life and presents with suicidal ideations. She is a plan to overdose. She denies any attempts at self-harm recently. Does admit to active marijuana use to help with her fibromyalgia. Denies any other drug use. Denies any alcohol use. She has no acute medical complaints. She is cooperative. [facility] being made for inpatient psychiatric treatment, and she was sent to the ED for medical clearance. Review of Systems A 10 point review of systems is negative except as noted above. Medical and Surgical History: Reviewed and noted Social history: Lives at home Tobacco: Denies Physical Exam Vitals & Measurements T: 36.8 ?C(Oral) HR: 95(Peripheral) RR: 18 BP: 160/104 SpO2: 100% Nurses notes and vital signs reviewed and patient is not hypoxic. General: The patient appears well, resting comfortably. Skin: Warm, dry. Head: Atraumatic. Neck: No JVD. Eye: Normal conjunctiva. Ears, Nose, Mouth, and Throat: Moist mucous membranes. Cardiovascular: Strong distal pulses. Chest wall: Respiratory: Respirations are nonlabored. Back: Normal range of motion. Musculoskeletal: Normal ROM with no gross deformity. Gastrointestinal: Urological: Neurological: Awake and alert. No focal deficits. Follows commands. Psychiatric: Cooperative. Suicidal Medical Decision Making Patient resting company on examination. Laboratory studies reviewed and noted. EKG shows no ischemic changes. She did request to move anxiety is given Ativan. She remains cooperative. [facility], and she is being transferred to [facility] for inpatient treatment. Critical Care Time: 40 minutes, critical care time is separate from any procedures that are performed. The following was considered in the determination of critical care but not limited to the level medical decision-making, intensive cardiac and/or respiratory monitor, frequent vital sign monitoring, evaluation of laboratory studies, evaluation of a radiographic studies, oxygen monitoring and constant monitoring. Assessment/Plan 1. Suicidal ideation (R45.851: Suicidal ideations) Orders: lorazepam, 2 mg = 2 tab(s), Tab, Oral, Once, Stop date 04/24/22 9:06:00 EDT, STAT, Start date 04/24/22 9:06:00 EDT, 04/24/22 9:06:00 EDT Automated Diff CBC w/ Auto Diff Communication Order Comprehensive Metabolic Panel Consult to Mental Health Drug Screen Urine ECG 12 Lead Adult eGFR Ethanol Level Rapid COVID Antigen [place] Patient to Disposition Plan Patient Discharge Condition Disposition: Transferred Condition: Improved and stable Counseled: Patient and/or family were counseled to workup, results, treatment plan and follow-up recommendations Discharge Prescription List Prescriptions No active prescription medications Follow-up No qualifying data available Attestation Patient seen and evaluated by the physician telecom assistant. Attending physician was present in the emergency department and supervised care. This visit was performed by both the physician and an APC. I performed all aspects of the MDM as documented. This report was transcribed using voice recognition software. Every effort was made to ensure accuracy, however, inadvertently computerized lithographer apprentice mistakes may be present. Appropriate healthcare PPE was used in evaluating this patient. The patient was placed in a mask. The healthcare provider was wearing mask, gloves, and utilizing proper hand hygiene. All equipment was properly cleansed. Problem List/Past Medical History Ongoing No qualifying data Historical No qualifying data Medications Inpatient Ativan 1 mg Tab, 2 mg= 2 tab(s), Oral, Once Home No active home medications Allergies No active allergies Social History Alcohol - Denies Alcohol Use, 04/24/2022 Substance Abuse - Low Risk, 04/24/2022 Marijuana, 04/24/2022 Tobacco - Denies Tobacco Use, 04/24/2022 Never (less than 100 in lifetime) Tobacco Use:. Never Smokeless Tobacco Use:., 04/24/2022 Lab Results WBC: 8.6 E9/L (04/24/22 09:19:00) RBC: 4.4 E12/L (04/24/22 09:19:00) HGB: 12.4 gm/dL (04/24/22 09:19:00) Hct: 37 % (04/24/22 09:19:00) MCV: 84.2 fL (04/24/22 09:19:00) MCH: 28.3 pg (04/24/22 09:19:00) MCHC: 33.6 gm/dL (04/24/22 09:19:00) RDW: 13.7 % (04/24/22 09:19:00) Platelet: 435 E9/L (04/24/22 09:19:00) MPV: 7.3 fL (04/24/22 09:19:00) Neutro (more content not included)... Normal [facility] Comment on above: Result Comment: Elec tronically Signed By: Stiven Borrego PA-C\.br\Date and Time Signed: 04/24/22 10:33 EDT\.br\Electronically Co-Signed By: Landon Moreno DO\.br\Date and Time Co-Signed: 04/25/22 07:13 EDT Auto Diffon 04-24-2022 Basophils/100 WBC (Bld) 0.6 % Normal 0.0-2.0 [facility] Comment on above: Order Comment: Order Added by Discern Expert. Performed By: #### 1 [id number], [id number], [id number], [id number] #### [facility] [address] [place] [address] Basophils/Leukocytes Auto (Bld) [Pure # fraction] 0.1 E9/L Normal 0.0-0.2 [facility] Comment on above: Order Comment: Order Added by Discern Expert. Performed By: #### 1 [id number], [id number], 9670638, [id number] #### [facility] [address] [place] [address] Eosinophils/100 WBC (Bld) 1.6 % Normal 0.0-8.0 [facility] Comment on above: Order Comment: Order Added by Discern Expert. Performed By: #### 1 [id number], [id number], 6924257, [id number] #### [facility] [address] [place] [address] Eosinophils/Leukocytes Auto (Bld) [Pure # fraction] 0.1 E9/L Normal 0.0-0.5 [facility] Comment on above: Order Comment: Order Added by Discern Expert. Performed By: #### 1 [id number], 9410815, 3153614, 6653475 #### [facility] [address] [place] [address] Lymphocytes/100 WBC (Bld) 22.7 % Normal 14.0-50.0 [facility] Comment on above: Order Comment: Order Added by Discern Expert. Performed By: #### 1 [id number], 8350948, 5202840, 5297426 #### [facility] [address] [place] [address] Lymphocytes/Leukocytes Auto (Bld) [Pure # fraction] 2.0 E9/L Normal 1.0-4.0 [facility] Comment on above: Order Comment: Order Added by Discern Expert. Performed By: #### 1 [id number], 9800224, 3698512, 8431355 #### [facility] [address] [place] [address] Monocytes/100 WBC (Bld) 8.3 % Normal 4.0-14.0 [facility] Comment on above: Order Comment: Order Added by Discern Expert. Performed By: #### 1 [id number], 7783179, 4442706, 7008685 #### [facility] [address] [place] [address] Monocytes/Leukocytes Auto (Bld) [Pure # fraction] 0.7 E9/L Normal 0.2-1.0 [facility] Comment on above: Order Comment: Order Added by Discern Expert. Performed By: #### 1 [id number], 1906102, 6314681, 1776090 #### [facility] [address] [place] [address] Neutrophils/100 WBC (Bld) 66.8 % Normal 36.0-75.0 [facility] Comment on above: Order Comment: Order Added by Discern Expert. Performed By: #### 1 [id number], 9744607, 6981662, 1584167 #### [facility] [address] [place] [address] Neutrophils/Leukocytes Auto (Bld) [Pure # fraction] 5.8 E9/L Normal 2.0-7.5 [facility] Comment on above: Order Comment: Order Added by Discern Expert. Performed By: #### 1 [id number], 2673169, 5778071, 4298981 #### [facility] [address] [place] [address] CBC w/ Auto Diffon Erythrocyte distribution width (RBC) [Ratio] 13.7 % Normal 10.9-14.2 [facility] Comment on above: Performed By: #### 1 [id number], 0936430, 9973771, 3723468 #### [facility] [address] [place] [address] Hematocrit (Bld) [Volume fraction] 37.0 % Normal 34.0-46.0 [facility] Comment on above: Performed By: #### 1 5185036, 5766749, 2031249, 8719766 #### [facility] [address] [place] [address] Hemoglobin (Bld) [Mass/Vol] 12.4 g/dL Normal 12.0-16.0 [facility] Comment on above: Performed By: #### 1 4392802, 9418711, 8668436, 2316299 #### [facility] [address] [place] [address] MCH (RBC) [Entitic mass] 28.3 pg Normal 27.0-34.0 [facility] Comment on above: Performed By: #### 1 5393327, 0968511, 7088503, 1721405 #### [facility] [address] [place] [address] MCHC (RBC) [Mass/Vol] 33.6 g/dL Normal 31.4-36.0 [facility] Comment on above: Performed By: #### 1 7959964, 4078263, 4253858, 2604448 #### [facility] [address] [place] [address] MCV (RBC) [Entitic vol] 84.2 fL Normal 80.0-100.0 [facility] Comment on above: Performed By: #### 1 [id number], 5403334, 5449860, 9410866 #### [facility] [address] [place] [address] Platelet mean volume (Bld) [Entitic vol] 7.3 fL Normal 6.4-10.8 [facility] Comment on above: Performed By: #### 1 [id number], 0380676, 5225879, 0979429 #### [facility] [address] [place] [address] Platelets (Bld) [#/Vol] 435.0 E9/L Normal 150.0-500.0 [facility] Comment on above: Performed By: #### 1 [id number], 1327665, 1239067, 4056009 #### [facility] [address] [place], [place] [id number] RBC (Bld) [#/Vol] 4.4 E12/L Normal 4.3-5.9 [facility] Comment on above: Performed By: #### 1 1997221, 1448134, 8025494, 9208029 #### [facility] [address] [place] [address] WBC corrected for nucl RBC Auto (Bld) [#/Vol] 8.6 E9/L Normal 4.0-11.0 [facility] Comment on above: Performed By: #### 1 [id number], 5632640, 0295408, 0630089 #### [facility] [address] [place] [address] CHEMISTRYOrdered By: SYSTEM SYSTEM on 04-24-2022 Amphetamines Screen method >1000 ng/mL Ql (U) Negative (04/24/22 9:49 AM) Normal Negative [facility] Barbiturates Screen Ql (U) Negative (04/24/22 9:49 AM) Normal Negative [facility] Benzodiazepines Ql (U) Negative (04/24/22 9:49 AM) Normal Negative [facility] Cocaine Ql (U) Negative (04/24/22 9:49 AM) Normal Negative [facility] Opiates Screen Ql (U) Negative (04/24/22 9:49 AM) Normal Negative [facility] Phencyclidine Screen method >25 ng/mL Ql (U) Negative (04/24/22 9:49 AM) Normal Negative [facility] Tetrahydrocannabinol Screen method >50 ng/mL Ql (U) Positive 1 *ABN* (04/24/22 9:49 AM) Invalid Interpretation Code Negative [facility] Comment on above: Result Comment: Crit ical Result verified by repeat analysis\Unconfirmed by alternate method\No confirmation requested by Physican\Critical Result UD_THC:POS Called to [facility] AT by TIFFANY RODGERS And Read Back For Confirmation at: 04/24/2022 13:54 Albumin [Mass/Vol] 3.9 g/dL Normal 3.3 - 5.0 gm/dL [facility] Albumin/Globulin [Mass ratio] 1.0 {ratio} Low 1.1 - 2.2 [facility] ALP [Catalytic activity/Vol] 90 [iU]/d Normal 21 - 98 Int._Unit/L [facility] ALT No additional P-5'-P [Catalytic activity/Vol] 33 [iU]/d Normal 6 - 46 Int._Unit/L [facility] Anion gap [Moles/Vol] 12 mmol/L Normal 6 - 16 mEq/L [facility] AST [Catalytic activity/Vol] 25 [iU]/d Normal 5 - 43 Int._Unit/L [facility] Bilirubin [Mass/Vol] 0.5 mg/dL Normal 0.0 - 1 .1 mg/dL [facility] Calcium [Mass/Vol] 9.1 mg/dL Normal 8.9 - 11. 1 mg/dL [facility] Chloride [Moles/Vol] 109 mmol/L Normal 101 - 1 11 mmol/L [facility] CO2 [Moles/Vol] 21 mmol/L Normal 21 - 31 mmol/L [facility] Creatinine [Mass/Vol] 0.5 mg/dL Normal 0.5 - 1.3 mg/dL [facility] Ethanol [Mass/Vol] mg/dL Normal <=7mg/dL [facility] R emisol GFR/1.73 sq M.predicted among blacks MDRD (S/P/Bld) [Vol rate/Area] mL/min/1.73 m2 Normal >=59mL/min/1 .73 m2 [facility] Chem S GFR/1.73 sq M.predicted among non-blacks MDRD (S/P/Bld) [Vol rate/Area] mL/min/1.73 m2 Normal >=59mL/min/1 .73 m2 [facility] Chem S Globulin (S) [Mass/Vol] 3.7 g/dL Normal 1.4 - 4.0 gm/dL [facility] Remisol Glucose [Mass/Vol] 112 mg/dL Normal 55 - 199 mg/dL [facility] Potassium [Moles/Vol] 3.7 mmol/L Normal 3.5 - 5.3 mmol/L [facility] Protein [Mass/Vol] 7.6 g/dL Normal 6.0 - 7.8 gm/dL [facility] Sodium [Moles/Vol] 138 mmol/L Normal 135 - 145 mmol/L [facility] Urea nitrogen [Mass/Vol] 10 mg/dL Normal 5 - 21 mg/d L [facility] Urea nitrogen/Creatinine [Mass ratio] 20 mg/mg Normal 10 - 20 [facility] CMPon 04-24-2022 Albumin [Mass/Vol] 3.9 g/dL Normal 3.3-5.0 [facility] Comment on above: Performed By: #### 1 [id number], 8401377, 0521481, 7631930 #### [facility] [address] [place] [address] Albumin/Globulin (S) [Mass conc ratio] 1.0 Low 1.1-2.2 [facility] Comment on above: Performed By: #### 1 7971610, 3177322, 5304972, 8363568 #### [facility] [address] [place] [address] ALP [Catalytic activity/Vol] 90 Int._Unit/L Normal 21-98 [facility] Comment on above: Performed By: #### 1 2488252, 7748972, 1634002, 1073382 #### [facility] [address] [place] [address] ALT No additional P-5'-P [Catalytic activity/Vol] 33 Int._Unit/L Normal 6-46 [facility] Comment on above: Performed By: #### 1 3464496, 9021033, 7391036, 5094575 #### [facility] [address] [place] [address] AST [Catalytic activity/Vol] 25 Int._Unit/L Normal 5-43 [facility] Comment on above: Performed By: #### 1 7887594, 8137252, 7140633, 8552306 #### [facility] [address] [place] [address] Bilirubin [Mass/Vol] 0.5 mg/dL Normal 0.0-1.1 [facility] Comment on above: Performed By: #### 1 5104239, 3445962, 3206624, 1287904 #### [facility] [address] [place] [address] Creatinine [Mass/Vol] 0.5 mg/dL Normal 0.5-1.3 [facility] Comment on above: Performed By: #### 1 8827599, 9427018, 2983776, 8046439 #### [facility] [address] [place] [address] Globulin (S) [Mass/Vol] 3.7 g/dL Normal 1.4-4.0 [facility] Comment on above: Performed By: #### 1 2225576, 5738158, 8793985, 9105828 #### [facility] [address] [place] [address] Protein [Mass/Vol] 7.6 g/dL Normal 6.0-7.8 [facility] Comment on above: Performed By: #### 1 8107601, 4124580, 9168949, 1658265 #### [facility] [address] [place] [address] Urea nitrogen [Mass/Vol] 10 mg/dL Normal 5-21 [facility] Comment on above: Performed By: #### 1 4409469, 0469798, 6881063, 0965936 #### [facility] [address] [place] [address] Urea nitrogen/Creatinine [Mass ratio] 20 No Units Normal 10-20 [facility] Comment on above: Performed By: #### 1 8179171, 3345038, 2895485, 5648610 #### [facility] [address] [place] [address] Anion gap [Moles/Vol] 12 mmol/L Normal 6-16 [facility] Comment on above: Performed By: #### 1 2886085, 1367260, 1498480, 0796806 #### [facility] [address] [place] [address] Calcium [Mass/Vol] 9.1 mg/dL Normal 8.9-11.1 [facility] Comment on above: Performed By: #### 1 0695847, 1717863, 3068531, 2845630 #### [facility] [address] [place] [address] Chloride [Moles/Vol] 109 mmol/L Normal 101-111 [facility] Comment on above: Performed By: #### 1 2348637, 2810028, 1880170, 7965360 #### [facility] [address] [place] [address] CO2 [Moles/Vol] 21 mmol/L Normal 21-31 [facility] Comment on above: Performed By: #### 1 9033935, 8284962, 9611673, 2471003 #### [facility] [address] [place] [address] Glucose [Mass/Vol] 112 mg/dL Normal 55-199 [facility] Comment on above: Result Comment: If t his glucose result represents a fasting glucose, interpretation should refer to the following reference range: 55-99 mg/dL Performed By: #### 1 [id number], 5283168, 2455742, 8932314 #### [facility] [address] [place] [address] Potassium [Moles/Vol] 3.7 mmol/L Normal 3.5-5.3 [facility] Comment on above: Performed By: #### 1 9661870, 9343314, 5257023, 4903857 #### [facility] [address] [place] [address] Sodium [Moles/Vol] 138 mmol/L Normal 135-145 [facility] Comment on above: Performed By: #### 1 4574150, 9901672, 4516974, 3818711 #### [facility] [address] [place] [address] Consent for Treatmenton Consent for Treatment [id number] Normal [facility] ED Clinical Summaryon 2021 ED Clinical Summary [address] [address] ED Clinical Summary Person Information Name: GÓMEZ WARREN [facility] Age: 41 Years : 1980 Sex: Female Language: Malaysian PCP: Beatriz Patten DO Marital Status: Phone: [phone] Visit Id: Visit Reason: Anxiety; Suicidal ideation; SUICIDAL THOUGHTS Speciality: Acuity: 2 Enc Type: Emergency Med Service: Emergency Arrival: 04/24/2022 08:53:16 Discharge: 04/24/2022 13:13:58 LOS: 000 04:20 Checkin: 04/24/2022 08:53:16 Checkout: 04/24/2022 13:13:58 [facility] EVENTS: Event Name Event Status Request Date/Time Start Date/Time Complete Date/Time Arrive Complete 04/24/2022 08:53:16 04/24/2022 08:53:16 04/24/2022 08:53:16 Document Home Meds Request 04/24/2022 08:53:16 Triage Complete 04/24/2022 08:53:16 04/24/2022 09:00:55 04/24/2022 09:00:55 Bed Assign Complete 04/24/2022 08:56:30 04/24/2022 08:56:30 04/24/2022 08:56:30 Dr Exam Complete 04/24/2022 08:56:30 04/24/2022 08:57:31 04/24/2022 08:57:31 RN Exam Complete 04/24/2022 08:56:30 04/24/2022 09:03:33 04/24/2022 09:03:33 Registration Complete 04/24/2022 08:57:31 04/24/2022 09:35:55 04/24/2022 09:35:55 Dr Exam Complete 04/24/2022 09:01:45 04/24/2022 09:01:45 04/24/2022 09:01:45 Consult Request 04/24/2022 09:06:15 EKG Complete 04/24/2022 09:06:15 04/24/2022 09:45:20 Pending Labs Inlab 04/24/2022 09:06:15 Lab Inlab 04/24/2022 09:06:15 Urine Collect Inlab 04/24/2022 09:06:15 Patient Care Request 04/24/2022 09:06:15 Meds Admin Complete 04/24/2022 09:06:37 04/24/2022 09:18:33 Patient Care Request 04/24/2022 09:07:01 Transfer Complete 04/24/2022 09:07:01 04/24/2022 13:14:29 04/24/2022 13:14:29 Pending Labs Complete 04/24/2022 09:21:49 04/24/2022 09:21:49 04/24/2022 09:42:59 Lab Complete 04/24/2022 09:21:49 04/24/2022 09:21:49 04/24/2022 09:42:59 Pending Labs Complete 04/24/2022 09:27:13 04/24/2022 09:27:13 04/24/2022 09:27:20 Lab Complete 04/24/2022 09:27:13 04/24/2022 09:27:13 04/24/2022 09:27:20 Reg Complete Request 04/24/2022 09:35:55 Reg Bed Request Complete 04/24/2022 09:35:55 04/24/2022 09:35:55 04/24/2022 09:35:55 Discharge Complete 04/24/2022 13:14:29 04/24/2022 13:14:29 04/24/2022 13:14:29 ADDRESS: [facility] [address] [id number] [facility] DOC NOTES: MEDICAL INFORMATION: Prescriptions Given: PATIENT EDUCATION INFORMATION: Instructions: Follow up: DIAGNOSIS: 1:Suicidal ideation Normal [facility] ED Patient Education Noteon 04-24-2022 ED Patient Education Note Normal [facility] ED Patient Summaryon 022 ED Patient Summary [place] [id number] Patient Discharge Instructions Person Information Name: GÓMEZ WARREN Age: 41 Years Arrival Date: 04/24/2022 08:53:16 Discharge Diagnosis: 1:Suicidal ideation Primary Care Physician: Beatriz Patten DO Provider Information Primary Provider: Landon Moreno DO Advanced Tenterer:Stiven Borrego PA-C The exam and treatment you received in the Emergency Department were for an urgent problem and are not intended as complete care. It is important that you follow up with a doctor, nurse practitioner, or physician?s telecom assistant for ongoing care. If your symptoms become worse or you do not improve as expected and you are unable to reach your usual health care provider, you should return to the Emergency Department. We are available 24 hours a day. GÓMEZ WARREN has been given the following list of patient education materials, prescriptions and follow-up instructions: Follow-up Instructions: In the event that this physician does not participate in your insurance network, please consult with your insurance company to find a nearby participating provider. Patient Education Materials: A MESSAGE TO ALL PATIENTS REGARDING OPIOIDS PRESCRIPTION OPIOIDS: WHAT YOU NEED TO KNOW Prescription opioids can be used to help relieve xnrtefcl-ha-yqotel pain and are often prescribed following a surgery or injury, or for certain health conditions. These medications can be an important part of the treatment but also come with serious risks. It is important to work with your healthcare provider to make sure you are getting the safest, most effective care. WHAT ARE THE RISKS AND SIDE EFFECTS OF OPIOID USE? Prescription opioids carry serious risks of addiction and overdose, especially with prolonged use. An opioid overdose, often marked by slowed breathing, can cause sudden . The use of prescription opioids can have a number of side effects as well, even when taken as directed: ? Tolerance?meaning you might need to take more of the medication for the same pain relief ? Physical dependence?meaning you have symptoms of withdrawal when a medication is stopped ? Increased sensitivity to pain ? Constipation ? Nausea, vomiting, and dry mouth ? Sleepiness and dizziness ? Confusion ? Depression ? Low levels of testosterone that can result in lower sex drive, energy, and strength ? Itching and sweating RISKS ARE GREATER WITH: ? History of drug misuse, substance use disorder, or overdose ? Mental health conditions (such as depression or anxiety) ? Sleep apnea ? Older age (65 years and older) ? Avoid alcohol while taking prescription opioids. Also, unless specifically advised by your health care provider, medications to avoid include: ? Benzodiazepines (such as Xanax or Valium) ? Muscle relaxants (such as Soma or Flexeril) ? Hypnotics (such as Ambien or Lunesta) ? Other prescription opioids KNOW YOUR OPTIONS Talk to your health care provider about ways to manage your pain that don?t involve prescription opioids. Some of these options may actually work better and have fewer risks and side effects. Options may include: ? Pain relievers such as acetaminophen, ibuprofen, and naproxen ? Some medication that are also used for depression or seizures ? Physical therapy and exercise ? Cognitive behavioral therapy, a psychological, goal-directed approach, in which patients learn how to modify physical, behavioral, and emotional triggers of pain and stress. IF YOU ARE PRESCRIBED OPIOIDS FOR PAIN: ? Never take opioids in greater amounts or more often than prescribed. ? Follow up with your primary health care provider. o Work together to create a plan on how to manage your pain. o Talk about ways to help manage your pain that don?t involve prescription opioids. o Talk about any and all concerns and side effects. ? Help prevent misuse and abuse o Never sell or share prescription opioids. o Never use another person?s prescription opioids. ? Store prescription opioids in a secure place and out of reach of others (this may include visitors, children, friends, and family). ? Safely dispose of unused prescription opioids: Find your community drug take-back program or your pharmacy mail-back program, or flush them down the toilet, following guidance from the Food and Drug Administration (www.fda.gov/Drugs/ ResourcesForYou). ? Visit www.cdc.gov/drugove rdose to learn about the risks of opioids abuse and overdose. ? If you believe you may be struggling with addiction, tell your health manager intensive care and ask for guidance or call [facility]?S National Helpline at 6-164-026-EAXS. o Source: [place] Department of Health and Human Services/Center for Disease Control & Prevention [facility] Medications Given: Medication Dose Route loraze (more content not included)... Normal [facility] Ethanolon 04-24-2022 Ethanol [Mass/Vol] mg/dL Normal <=7 [facility] Comment on above: Performed By: #### 2 [id number] #### [facility] [address] [place] [address] HEMATOLOGYOrdered By: SYSTEM SYSTEM on 04-24-2022 Basophils/100 WBC (Bld) 0.6 % Normal 0.0 - 2.0 % [facility] HemeAutoSS Basophils/Leukocytes Auto (Bld) [Pure # fraction] 0.1 E9/L Normal 0.0 - 0.2 E9/L [facility] HemeAutoSS Eosinophils/100 WBC (Bld) 1.6 % Normal 0.0 - 8.0 % [facility] HemeAutoSS Eosinophils/Leukocytes Auto (Bld) [Pure # fraction] 0.1 E9/L Normal 0.0 - 0.5 E9/L [facility] HemeAutoSS Lymphocytes/100 WBC (Bld) 22.7 % Normal 14.0 - 50.0 % [facility] HemeAutoSS Lymphocytes/Leukocytes Auto (Bld) [Pure # fraction] 2.0 E9/L Normal 1.0 - 4.0 E9/L [facility] HemeAutoSS Monocytes/100 WBC (Bld) 8.3 % Normal 4.0 - 14.0 % [facility] HemeAutoSS Monocytes/Leukocytes Auto (Bld) [Pure # fraction] 0.7 E9/L Normal 0.2 - 1.0 E9/L [facility] HemeAutoSS Neutrophils/100 WBC (Bld) 66.8 % Normal 36.0 - 75.0 % [facility] HemeAutoSS Neutrophils/Leukocytes Auto (Bld) [Pure # fraction] 5.8 E9/L Normal 2.0 - 7.5 E9/L [facility] HemeAutoSS HEMATOLOGYOrdered By: Kosta Munroe on 04-24-2022 Erythrocyte distribution width (RBC) [Ratio] 13.7 % Normal 10.9 - 14.2 % [facility] HemeAutoSS Hematocrit (Bld) [Volume fraction] 37.0 % Normal 34.0 - 46.0 % [facility] HemeAutoSS Hemoglobin (Bld) [Mass/Vol] 12.4 g/dL Normal 12.0 - 16.0 gm/dL [facility] HemeAutoSS MCH (RBC) [Entitic mass] 28.3 pg Normal 27. 0 - 34.0 pg [facility] HemeAutoSS MCHC (RBC) [Mass/Vol] 33.6 g/dL Normal 31.4 - 36.0 gm/dL [facility] HemeAutoSS MCV (RBC) [Entitic vol] 84.2 fL Normal 80.0 - 100.0 fL [facility] HemeAutoSS Platelet mean volume (Bld) [Entitic vol] 7.3 fL Normal 6.4 - 10.8 fL [facility] HemeAutoSS Platelets (Bld) [#/Vol] 435.0 E9/L Normal 150. 0 - 500.0 E9/L [facility] HemeAutoSS RBC (Bld) [#/Vol] 4.4 E12/L Normal 4.3 - 5.9 E12/L [facility] HemeAutoSS WBC corrected for nucl RBC Auto (Bld) [#/Vol] 8.6 E9/L Normal 4.0 - 11.0 E9/L [facility] HemeAutoSS MICRO OTHER TESTSOrdered By: Kurtis Mcbride on 04-24-2022 Rapid COV Int NEG Ctl Pass (04/24/22 9:06 AM) Normal [facility] Rapid COV Int POS Ctl Pass (04/24/22 9:06 AM) Normal [facility] SARS-CoV+SARS-CoV-2 (COVID-19) Ag IA.rapid Ql (Resp) Not Detected (04/24/22 9:06 AM) Normal Not Detected [facility] Outside Recordson 04-24-2022 Outside Records [id number] 6#1.00CD:127 Normal [facility] Rapid COVID Antigen ([facility])on 04-24-2022 Rapid COV Int NEG Ctl Pass Normal [facility] Comment on above: Performed By: #### 2 [id number] #### [facility] [address] [place] [address] Rapid COV Int POS Ctl Pass Normal [facility] Comment on above: Performed By: #### 2 [id number] #### [facility] [address] [place] [address] SARS-CoV+SARS-CoV-2 (COVID-19) Ag IA.rapid Ql (Resp) Not detected Normal Not Detected [facility] Comment on above: Result Comment: The 60moitor? System for Rapid Detection of SARS-CoV-2 is a chromatographic digital immunoassay intended for the direct and qualitative detection of SARS-CoV-2 nucleocapsid antigens in nasal swabs from individuals who are suspected of COVID-19 by their healthcare provider within the first five days of the onset of symptoms. Negative results should be treated as presumptive, do not rule out SARS-CoV-2 infection and should not be used as the sole basis for treatment or patient management decisions, including infection control decisions. Negative results should be considered in the context of a patient?s recent exposures, history and the presence of clinical signs and symptoms consistent with COVID-19, and confirmed with a molecular assay, if necessary, for patient management. For in vitro diagnostic use. In the [place], only for use under an Emergency Use Authorization. In the [place], this test has not been FDA cleared or approved; this test has been authorized by FDA under an EUA for use by authorized laboratories; use by laboratories certified under the CLIA, 42 U.S.C. ?263a, that meet requirements to perform moderate, high, or waived complexity tests and at the Point of Care (POC), i.e., in patient care settings operating under a CLIA Certificate of Waiver, Certificate of Compliance, or Certificate of Accreditation. This test has been authorized only for the detection of proteins from SARS-CoV-2, not for any other viruses or pathogens; and, in the [place], this test is only authorized for the duration of the declaration that circumstances exist justifying the authorization of emergency use of in vitro diagnostics for detection and/or diagnosis of the virus that causes COVID-19 under Section 564(b)(1) of the Act, 21 U.S.C. ? 360bbb-3(b)(1), unless the authorization is terminated or revoked sooner. Performed By: #### 2 [id number] #### [facility] [address] [place] [address] ADMITTED TO INTENSIVE CARE UNIT FOR CONDITION OF INTEREST:FIND:PT: NO Normal [facility] Comment on above: Performed By: #### 2 [id number] #### [facility] [address] [place] [address] EMPLOYED IN A HEALTHCARE SETTING:FIND:PT: NO Normal [facility] Comment on above: Performed By: #### 2 [id number] #### [facility] [address] [place] [address] FIRST TEST FOR CONDITION OF INTEREST:FIND:PT: Unknown Normal [facility] Comment on above: Performed By: #### 2 [id number] #### [facility] [address] [place] [address] HAS SYMPTOMS RELATED TO CONDITION OF INTEREST:FIND:PT: YES Normal [facility] Comment on above: Performed By: #### 2 [id number] #### [facility] [address] [place] [address] HOSPITALIZED FOR CONDITION OF INTEREST:FIND:PT: Unknown Normal [facility] Comment on above: Performed By: #### 2 [id number] #### [facility] [address] [place] [address] STATUS:FIND:PT: NO Normal [facility] Comment on above: Performed By: #### 2 [id number] #### [facility] [address] [place] [address] [facility]IDES [facility]TING:FIND:PT: NO Normal [facility] Comment on above: Performed By: #### 2 [id number] #### [facility] [address] [place] [address] Transfer Documentson 022 Transfer Documents [id number] 4#1.00CD:127 Normal [facility] U Drug Screenon 04-24-2022 Tetrahydrocannabinol Screen method >50 ng/mL Ql (U) Positive Abnormal Negative [facility] Comment on above: Result Comment: Crit ical Result verified by repeat analysis\Unconfirmed by alternate method\No confirmation requested by Yonas\Critical Result UD_THC:POS Called to [facility]IL[facility] AT by TIFFANY RODGERS And Read Back For Confirmation at: 04/24/2022 13:54 Negative Cutoff: <50 ng/mL Performed By: #### 2 [id number] #### [facility] [address] [place] [address] Amphetamines Screen method >1000 ng/mL Ql (U) Negative Normal Negative [facility] Comment on above: Result Comment: Nega tive Cutoff: <1000 ng/mL Performed By: #### 2 [id number] #### [facility] [address] [place] [address] Barbiturates Screen Ql (U) Negative Normal Negative [facility] Comment on above: Result Comment: Nega tive Cutoff: <200 ng/mL Performed By: #### 2 [id number] #### [facility] [address] [place] [address] Benzodiazepines Ql (U) Negative Normal Negative [facility] Comment on above: Result Comment: Nega tive Cutoff: <200 ng/mL Performed By: #### 2 [id number] #### [facility] [address] [place] [address] Cocaine Ql (U) Negative Normal Negative [facility] Comment on above: Result Comment: Nega tive Cutoff: <300 ng/mL Performed By: #### 2 [id number] #### [facility] [address] [place] [address] Opiates Screen Ql (U) Negative Normal Negative [facility] Comment on above: Result Comment: Nega tive Cutoff: <300 ng/mL Performed By: #### 2 [id number] #### [facility] [address] [place] [address] Phencyclidine Screen method >25 ng/mL Ql (U) Negative Normal Negative [facility] Comment on above: Result Comment: Nega tive Cutoff: <25 ng/mL These drug screen results are to be used for medical (i.e., treatment) purposes only. Unconfirmed drug screening results must not be used for non-medical purposes (e.g., employment testing, legal testing). Performed By: #### 2 [id number] #### [facility] [address] [place] [address] Valuables Checkliston 2021 Valuables Checklist [id number] 0#1.00CD:127 Normal [facility] eGFRon 04-24-2022 GFR/1.73 sq M.predicted among blacks MDRD (S/P/Bld) [Vol rate/Area] mL/min/{1.73_m2} Normal >=59 [facility] Comment on above: Order Comment: Order added by Discern Expert. Result Comment: eGFR is race adjusted. AA=. Performed By: #### 1 [id number] #### [facility] [address] [place] [address] GFR/1.73 sq M.predicted among non-blacks MDRD (S/P/Bld) [Vol rate/Area] mL/min/{1.73_m2} Normal >=59 [facility] Comment on above: Order Comment: Order added by Discern Expert. Result Comment: Director Experimental Medicine joe kidney disease could be indicated at eGFR's of less than 60 mL/min/1.73m2. Kidney failure is indicated at less than 15 mL/min/1.73m2. Performed By: #### 1 [id number] #### [facility] [address] [place] [address] Robert 02-12-2021 CNPN Telephone (NHMNS2) ---- GÓMEZ WARREN ([id number]) 1980 F [place] Date Time Provider Department 02/12/21 KALEIGH VENEGAS [facility] During your visit today, we recorded the following information about you: Nay Cat 02/12/2021 7:39 AM Signed Received faxed notification from [facility] stating PA needed on Aimovig. Riley Garcia Ma 02/12/2021 8:48 AM Signed PA for Aimovig ([facility]) -> waiting on determination (Izaguirre: [id number]) Allergies As of Date: 02/12/2021 (Not on File) Date Reviewed: Never Reviewed Reason for Visit: Insurance Authorization [[id number]] Cmt: Aimovig Prescriptions as of 06/11/2021 - acetaZOLAMIDE (DIAMOX) 250 mg tablet Take 1 tablet by mouth once daily. - AIMOVIG AUTOINJECTOR 140 mg/mL auto-injector USE DIRECTED SUBCUTANEOUSLY - VENTOLIN HFA 90 mcg/actuation inhaler TAKE 2 PUFFS BY MOUTH EVERY 4 HOURS NEEDED FOR SHORTNESS OF BREATH OR WHEEZING - busPIRone (BUSPAR) 10 mg tablet TAKE 1 TABLET BY MOUTH EVERYDAY AT BEDTIME - naproxen sodium (ALEVE) 220 mg cap - SUMAtriptan (IMITREX) 100 mg tablet TAKE 1 TABLET BY MOUTH EVERY DAY NEEDED FOR MIGRAINE - tiZANidine (ZANAFLEX) 4 mg tablet - DULoxetine (CYMBALTA) 30 mg capsule 30mg qhs for one week and 60mg qhs afterwards Problem List As Of Date: 02/12/2021 (None) Encounter Status:Closed by SERGEY JEANNINENAY Drake on 06/11/21 [facility] OBSOLETEon 02-07-2021 OBSOLETE Refill (NHMNS2) ---- CHADGÓMEZ ([id number]) 1980 F [place] Date Time Provider Department 02/07/21 KALEIGH VENEGAS NHMNS2 During your visit today, we recorded the following information about you: Nay Cat 02/07/2021 11:41 AM Signed Physician: Gloria Call from patient requesting refill. Please E-Scribe Last OV: 12/31/20 with Gloria Future OV: not scheduled Pending Prescriptions Disp Refills ACETAZOLAMIDE 250 MG TABLET Sig: Take 1 tablet by mouth once daily. SALVADOR: No AIMOVIG AUTOINJECTOR 140 MG/ML SUBCUTANEOUS AUTO-INJECTOR Sig: Do not shake. SALVADOR: Yes [facility]acy Name: [facility] Allergies As of Date: 02/07/2021 (Not on File) Date Reviewed: Never Reviewed Reason for Visit: Refill Request [94] Order(s):acetaZOLAM BROOK (DIAMOX) 250 mg tabletTake 1 tablet by mouth once daily.Disp: 90 tabletRfl: 3 AIMOVIG AUTOINJECTOR 140 mg/mL auto-injectorUSE DIRECTED SUBCUTANEOUSLYDisp: 1 PenRfl: 11 Prescriptions as of 02/07/2021 Sig: ACETAZOLAMIDE 250 MG TABLET Take 1 tablet by mouth once d* AIMOVIG AUTOINJECTOR 140 MG/M* USE DIRECTED SUBCUTANEOUSLY VENTOLIN HFA 90 MCG/ACTUATION* TAKE 2 PUFFS BY MOUTH EVERY 4* BUSPIRONE 10 MG TABLET TAKE 1 TABLET BY MOUTH EVERYD* NAPROXEN SODIUM 220 MG CAPSULE SUMATRIPTAN 100 MG TABLET TAKE 1 TABLET BY MOUTH EVERY * TIZANIDINE 4 MG TABLET DULOXETINE 30 MG CAPSULE,KELLY* 30mg qhs for one week and 60m* Problem List As Of Date: 02/07/2021 (None) Prescriptions ordered this encounter Disp Refills Start End ACETAZOLAMIDE 250 MG TABLET 90 t* 3 02/10/2021 02/10/2022 Route: ORAL Sig: Take 1 tablet by mouth once daily. AIMOVIG AUTOINJECTOR 140 MG/ML SUBCU* 1 Pen 11 02/10/2021 Sig: USE DIRECTED SUBCUTANEOUSLY Medications Discontinued During This Encounter Prescriptions - acetaZOLAMIDE (DIAMOX) 250 mg tablet (Discontinued) Take 250 mg by mouth once daily. - AIMOVIG AUTOINJECTOR 140 mg/mL auto-injector (Discontinued) USE DIRECTED SUBCUTANEOUSLY Encounter Status:Closed by KALEIGH VENEGAS on 02/10/21 [facility] CNOVon 12-31-2020 CNOV Office Visit (NHMNS2) ---- GÓMEZ WARREN ([id number]) 1980 F [place] Date Time Provider Department 12/31/20 10:00 AM KALEIGH VENEGAS N NHMNS2 During your visit today, we recorded the following information about you: Pulse Blood pressure Weight Height 90/minute 124/80 89.6 kg 1.524 m Last Period 12/26/20 Kaleigh Venegas MD 01/01/2021 11:38 AM Signed [facility] [address] [place], [place] [address] SELF PCP: Sloan Wei DO This is a 40 year old year old, Right handed woman who is here for the evaluation and management of the patient's Headache. The patient reports that she was diagnosed with migraine at age 18 and pseudotumor cerebri in 2011 by lumbar puncture. Her headache was under control until last year when her grandmother , She reports her pain is controlled with acetazolamide 250mg every day, imitrex 5-6 times a month however she noticed the medication is sedating and experience occipital headache and aimovig that brought down her headache frequency from 20/month to 4-5/month. Her headache is located in the bilateral frontal region that extends to her temporal region with left sided affected more than right side. Her main concern today is vertigo that was exacerbated by eye closing. The patient tried topamax but could not tolerate the mood changes caused by the medications. She reports that tizanidine improved her sleep as she also has fibromyalgia with pain in her left arm and shoulder. 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 She lost 20 lbs over the last month after Covid infection since November this year. 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 She endorsed depression and. CC: Headache HPI: Past medical history significant for: fibromyalgia and pseudotumor cerebri Age of onset of headaches: 18 How often are you having headaches/how many days of headaches in a week: 1-2 Are your headaches continuous/24 hours: yes Has there been an increase in headache frequency: no Do you have more severe episodes on top of regular headaches: no Headache location: bilateral frontal region Are your headaches always on one side: no Quality: pressure Duration of more severe headaches: hours What makes headaches worse: stress What makes headaches better: laying down and sleeping Any positional aspect to the headaches: No Associated symptoms: photophobia, phonophobia, osmophobia, nausea, vertigo, lightheaded, unsteadiness, blurred vision and right tinnitus Aura: no What medication do you use for headaches/ pain: sumatriptan How often do you use these medications in any given week: 1-2 Do you have any other pain symptoms anywhere else in your body: back pain, left arm and left leg Previous testing: CT brain - 06/17/2020 No acute intracranial pathology. There is 6 mm of downward displacement of the cerebellar tonsils with mild downward point of the tonsils suggesting Chiari I malformation. There is also mild flattening of the dome of the pituitary which is atypical for the patient's age and is occasionally noted in patients with elevated intracranial pressure. There is mild prominence of the CSF space along the head of the optic nerve on the right . Correlation with any clinical signs of elevated intracranial pressure/peudotumor cerebri is recommended. Prior Treatments: Triptans: Imitrex NSAIDS/Combination Analgesics: ibuprofen (Motrin) Other: tizanidine Current Medications: No current outpatient medications on file. No current facility-administer ed medications for this visit. . Allergies: ALLERGIES Not on File Family History: Migraine or other headaches in the family: Yes Mother Past Medical History: No past medical history on file. Past Surgical History No past surgical history on file. Social History: Social History Tobacco Use - Smoking status: Not on file Substance Use Topics - Alcohol use: Not on file - Drug use: Not on file ROS: REVIEW OF SYSTEMS GENERAL: No fever or malaise HEENT: SEE HPI NECK: Negative for lumps, goiter, pain and significant neck swelling RESPIRATORY: Negative for cough, hemoptysis, wheezing or shortness of breath CARDIOVASCULAR: Negative for chest pain, leg swelling or palpitations GI: nausea, diarrhea, constipation : No history of dysuria, frequency or incontinence MUSCULOSKELETAL: joint pain or swelling, back pain and muscle pain PSYCH: sleep fragmented, recent stressor at work ENDOCRINE: Negative for cold or heat intolerance, polyuria, polydipsia and goiter NEURO: Migraine headaches Physical Exam: Vital Signs: There were no vitals taken for this visit. General: in no acute distress, alert, overweight Pain Behaviors: no pain behaviors observed Skin: Color, texture, turgor normal. No rashes or lesions HEENT: Normocephalic/atrau (more content not included)... Normal [facility] Initial Visit (Pain Medicine )on 09-02-2020 Initial Visit (Pain Medicine) Diagnoses/Problems Fibromyalgia (729.1) (M79.7) Patient Discussion/Summary Today we discussed the etiology of your pain. At this time, we are not making any changes to her medication regimen. It is recommended that you cooperate at least 1 hour of low intensity aerobic exercise into your daily routine. If there is no notable improvement in your symptoms, we can consider performing a ketamine infusion at a later date. 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 She reports that she currently takes Aleve and tizanidine at home with no significant relief. 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 Based on history, imaging, and physical exam, this patient is diffuse generalized pain is likely due to fibromyalgia. We discussed with the patient the diagnosis of fibromyalgia. The patient was explained that the mainstay of managing fibromyalgia is to participate in low-impact aerobic exercising for 1 hour day, 6 days a week. Examples of low impact aerobic exercising include swimming, riding a stationary bicycle or exercising on an elliptical machine. Low-impact aerobic exercising at that rate results in much better pain relief than any of the medications that could be prescribed for fibromyalgia and without side effects. The patient must be compliant, however, and must participate in such therapy for 8 weeks consecutively before noticing a remarkable response. It was explained to the patient that one could titrate up from a smaller duration of exercising by increasing the time spent doing the low-impact aerobic exercise in small increments such as 1 minute every day until meeting the 60 minutes a day, 6 days a week goal. The patient was receptive to the counseling and agrees to continue to exercise toward this goal. She has exhausted conservative measures including NSAIDs, SSRIs, muscle relaxants. She is a non-smoker. At this time it is reasonable to advise patient to partake in at least 1 hour of low intensity aerobic exercise daily. If this does not provide notable relief, we will consider giving a ketamine infusion at a later date. Risks, benefits and alternatives of the procedure were discussed with the patient who expressed understanding and agrees to proceed. The patient was invited to contact us back anytime with any questions or concerns and follow-up with us in the office as needed. Chief Complaint generalized pain History of Present Tgnavaw57 year old female presents with generalized pain, worst in back and hands, rated 5/10. 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 Torres and presents with a complaint of generalized pain. The pain is worst in her back, shoulders, and hands. Patient reports that she had some genetic testing done several years ago which showed that she is a fast metabolizer and has tried most pain medications at some point, but nothing has worked for her. She currently reports her pain to be at a 5 out of 10 on pain scale, but reports that she has approximately 2 flares every month, typically triggered by stress. She currently takes Aleve and muscle relaxers and reports that they take the edge off , but they do not completely alleviate her pain. Pain is located primarily in her upper and lower back. The pain is described as throbbing and aching and is constant. The onset was gradual and has increased in intensity over the past several years. Patient rates the pain 8/10 at its worst, and on average rates the pain a 5/10. It is exacerbated by prolonged periods of inactivity; pain is improved by movement. The pain causes significant stress in the patient's life, specifically interferes with general activity, ability to ambulate, and ability to perform tasks at home and work. Review of Systems Musculoskeletal: back pain and limb swelling. Neurological: headache, numbness and tingling. REVIEW OF SYSTEMS: Constitutional: Negative for [chills,] [diaphoresis,] [fever,] [malaise/fatigue] and [weight loss.] HENT: Negative for [congestion,] [sore throat] Eyes:. Negative for [vision changes,] [eye pain.] Respiratory:. Negative for [cough,] [sputum production,] [shortness of breath,] [wheezing] and [stridor.] Cardiovascular:. Negative for chest pain, palpitations, orthopnea, [leg swelling]. Gastrointestinal:. Negative for [abdominal pain,] nausea and vomiting. Genitourinary:. Negative for incontinence, urgency. Musculoskeletal: Positive for generalized pain in the upper and lower back, bilateral shoulders, and bilateral hands Skin: Negative for itching and rash. Neurological: Numbness and tingling in bilateral lower extremities; Negative for dizziness,, tremors, sensory change speech change, seizures, loss of consciousness, weakness and headaches. Endo/Heme/Allergies : Negative for environmental allergies and polydipsia. Does not bruise/bleed easily. Psychiatric/Behavio ral: Negative for depression substance abuse and suicidal ideas. The patient is not nervous/anxious and does not have insomnia. The above positive findings are being closely monitored by the proper provider and are not new. Allergies HYDROcodone-Acetami nophen TABS Recorded By: Rupa Shanks; 09/02/2020 10:27:14 AM Lyrica CAPS Recorded By: Rupa Shanks; 09/02/2020 10:22:49 AM Wellbutrin TABS Recorded By: Rupa Shanks; 09/02/2020 10:27:14 AM Current Meds Medication NameInstruction acetaZOLAMIDE 250 MG Oral Tablet Aimovig 140 MG/ML Subcutaneous Solution Auto-injector Imitrex 25 MG Oral Tablet tiZANidine HCl - 4 MG Oral Capsule Vitals Vital Signs Recorded: 02Sep2020 10:27AM Heart Rate98 [id number] Qempfrjp864 Ngeswghtr62 Pain Scale5 Physical Exam PHYSICAL EXAM: Vitals signs reviewed. Constitutional: General: Not in acute distress. Appearance: Normal appearance. Not ill-appearing. HENT: Head: Normocephalic and atraumatic. Eyes: Extraocular Movements: Extraocular movements intact. Conjunctiva/sclera: Conjunctivae normal Neck: Musculoskeletal: [Normal range of motion and] neck supple. Cardiovascular: Rate and Rhythm: Normal rate and regular rhythm. Pulses: Normal pulses. Pulmonary: Effort: Pulmonary effort is normal. No respiratory distress. Abdominal: General: Abdomen is flat. There is no distension. Palpations: Abdomen is soft. Tenderness: There is no abdominal tenderness. Musculoskeletal: Tenderness along bilateral shoulders, tenderness along midline and paraspinal musculature along upper and lower back Skin: General: Skin is warm and dry. Findings: No lesion. Neurological: General: No focal deficit present. Mental Status: Alert and oriented to person, place, and time. Mental status is at baseline. Cranial Nerves: No cranial nerve deficit. Sensory: No sensory deficit. Motor: No weakness. Psychiatric: Mood and Affect: Mood normal. Behavior: Behavior normal. ADVANCED PHYSICAL EXAM: Motor: normal 5/5 strength in all tested muscle groups, no muscle wasting or atrophy and normal resting muscle tone Reflexes: reflexes are normal and symmetric Cervical: Positive for paraspinal tenderness bilaterally Thoracic: Positive for paraspinal tenderness bilaterally Lumbar: straight leg test positive bilaterally, paraspinal tenderness bilaterally Sacral/Caudal: Negative tenderness to palpation over bilateral SI joints, TARA - negative posterior pain bilaterally Attending Note Trainee role: Resident Trainee discussed patient with Humphrey Terrell MD I saw and evaluated the patient. I personally obtained the izaguirre and critical portions of the history and physical exam or was physically present for izaguirre and critical portions performed by the trainee. I reviewed the trainee's documentation and discussed the patient with the trainee. I agree with the trainee's medical decision making, as documented on the trainee's note. Signatures Electronically signed by : Meghan Inman DO; Sep 02 2020 4:07PM EST (Co-author) Electronically signed by : Humphrey Terrell MD; Sep 02 2020 4:42PM EST (Author) Normal [facility] Vital Signs Date Time Vital Sign Value Performing Clinician Facility 09-28-2023 08:49-0500 Body height 152.4 cm Su Serna MD Work Phone: [facility] 09-28-2023 08:49-0500 Body mass index (BMI) [Ratio] 40.62 kg/m2 Su Serna MD Work Phone: [facility] 09-28-2023 08:49-0500 Body temperature 97.39 [degF] Su Serna MD Work Phone: [facility] 09-28-2023 08:49-0500 Body weight 94.35 kg Su Serna MD Work Phone: [facility] 09-28-2023 08:49-0500 Diastolic blood pressure 68 mm[Hg] Su Serna MD Work Phone: [facility] 09-28-2023 08:49-0500 Heart rate 69 /min Su Serna MD Work Phone: [facility] 09-28-2023 08:49-0500 Respiratory rate 17 /min Su Serna MD Work Phone: [facility] 09-28-2023 08:49-0500 SaO2% (BldA) [Mass fraction] 97 % Su Serna MD Work Phone: [facility] 09-28-2023 08:49-0500 Systolic blood pressure 128 mm[Hg] Su Serna MD Work Phone: [facility] 04-24-2022 13:00-0400 Hourly Rounding Landon Moreno [facility] 04-24-2022 13:00-0400 Promise to Return Landon Moreno [facility] 04-24-2022 12:00-0400 Hourly Rounding Landon Tiffanie [facility] 04-24-2022 12:00-0400 Promise to Return Landon Tiffanie [facility] 04-24-2022 11:30-0400 Diastolic blood pressure 89 mm[Hg] Landon Tiffanie [facility] 04-24-2022 11:30-0400 Heart rate 86 /min Landon Tiffanie [facility] 04-24-2022 11:30-0400 Mean blood pressure 108 mm[Hg] Landon Tiffanie [facility] 04-24-2022 11:30-0400 Respiratory rate 16 /min Landon Tiffanie [facility] 04-24-2022 11:30-0400 SaO2% (BldA) [Mass fraction] 99 % Landon Tiffanie [facility] 04-24-2022 11:30-0400 Systolic blood pressure 145 mm[Hg] Landon Tiffanie [facility] 04-24-2022 11:00-0400 Hourly Rounding Landon Connore [facility] 04-24-2022 11:00-0400 Promise to Return Landon Tiffanie [facility] 04-24-2022 08:57-0400 Body temperature 98.24 [degF] Landon Tiffanie [facility] 04-24-2022 08:57-0400 Diastolic blood pressure 104 mm[Hg] Landon Tiffanie [facility] 04-24-2022 08:57-0400 Heart rate 95 /min Landon Tiffanie [facility] 04-24-2022 08:57-0400 Respiratory rate 18 /min Landon Tiffanie [facility] 04-24-2022 08:57-0400 SaO2% (BldA) [Mass fraction] 100 % Landon Moreno [facility] 04-24-2022 08:57-0400 Systolic blood pressure 160 mm[Hg] Landon Moreno [facility] Encounters Encounter Date Encounter Type Care Provider Facility Start: 09-28-2023 Chart abstracting Su velázquez MD Work Phone: [facility] Start: 09-28-2023 End: 09-28-2023 ambulatory SU Carlson DAPHNE Not Available Start: 09-28-2023 End: 09-28-2023 Office outpatient visit 25 minutes Su Serna MD Work Phone: [facility] Comment on above: Acute cystitis witho ut hematuria (Primary Dx); Dysuria; Malodorous urine; Intracranial hypertension; Other migraine without status migrainosus, not intractable (CMS/HCC); Hx of hysterectomy; Hx of gastritis; Chronic diarrhea; Knee pain, unspecified chronicity, unspecified laterality; Hilar lymphadenopathy; Left leg numbness; SOB (shortness of breath); Fibromyalgia Start: 09-14-2023 End: 09-15-2023 ambulatory SU M DAPHNE Not Available Start: 09-10-2023 End: 09-11-2023 ambulatory SU SERNA Not Available Start: 09-07-2023 End: 09-07-2023 ambulatory SU SERNA Not Available Start: 03-02-2023 ambulatory Michele Barrientos acility:[facility] Start: 01-18-2023 Encounter for genera l adult medical examination without abnormal findings SU SERNA [facility] Start: 01-16-2023 End: 01-17-2023 ambulatory SU SERNA Facility: Start: 01-16-2023 End: 01-17-2023 Encounter for general adult medical examination without abnormal findings SU SERNA Facility:[facility] Start: 07-04-2022 End: 07-04-2022 ambulatory MARTÍNEZ AVILA Facility: Start: 04-24-2022 End: 04-24-2022 Emergency department patient visit Landon Moreno [facility] Start: 05-22-2021 ambulatory SU Bassett ty:[facility] Procedures Date Procedure Procedure Detail Performing Clinician Start: 09-28-2023 Urnls dip stick/tabl et rgnt auto w/o microscopy Su Serna MD Work Phone: H/O: hysterectomy Hx of hysterectomy Su Serna MD Work Phone: Plan of Treatment Date Care Activity Detail Author Start: 02-13-2028 Screening for malignant neoplasm of cervix [facility] Start: 01-04-2024 End: 01-04-2024 Patient encounter procedure 01/04/2024 1:20 PM EDT Office Visit [facility] [address] [place] [address] Su Serna MD [address] [place], [place] [id number] [facility] Start: 09-28-2023 End: 09-28-2024 Angiotensin converting enzyme [Enzymatic activity/volume] in Serum or Plasma Angiotensin converting enzyme Lab Routine Hilar lymphadenopathy Expected: 09/28/2023 (Approximate), Expires: 09/28/2024 [facility] Comment on above: Expected: 09/28/2023 (Approximate), Expires: 09/28/2024 Start: 09-28-2023 End: 09-28-2024 QUANTIFERON TB GOLD Quantiferon TB Gold Lab Routine Hilar lymphadenopathy Expected: 09/28/2023 (Approximate), Expires: 09/28/2024 [facility] Comment on above: Expected: 09/28/2023 (Approximate), Expires: 09/28/2024 Start: 09-28-2023 End: 09-28-2024 URINARY TRACT INFECTION (HTRX) URINARY TRACT INFECTION (HTRX) Lab Routine Dysuria Acute cystitis without hematuria Expected: 09/28/2023 (Approximate), Expires: 09/28/2024 [facility] Work Phone: Comment on above: Expected: 09/28/2023 (Approximate), Expires: 09/28/2024 Start: 09-28-2023 End: 09-28-2023 Patient encounter procedure 09/28/2023 9:00 AM EST Office Visit [facility] [address] [place] [id number] Su Serna MD [address] [place] [address] [facility] Start: 2022 Screening for malignant neoplasm of breast Mammogram [facility] Start: 2003 Screening for malignant neoplasm of cervix Pap Smear [facility] Pulmonary function testing Pulmonary function testing Imaging Routine Hilar lymphadenopathy SOB (shortness of breath) Ordered: 09/28/2023 [facility] Comment on above: Ordered: 09/28/2023 Immunizations Immunization Date Immunization Notes Care Provider Fa [facility] 09-03-2023 Influenza, injectabl e, Madin Na Canine Kidney, preservative free, quadrivalent Su Serna MD Work Phone: [facility] 08-07-2021 influenza, injectabl e, quadrivalent, preservative free Su Serna MD Work Phone: [facility] 07-22-2020 influenza, injectabl e, quadrivalent, preservative free Su Serna MD Work Phone: [facility] 05-25-2017 influenza virus vacc ine, unspecified formulation Su Serna MD Work Phone: [facility] Payers Date Payer Category Payer Self-pay 2022 Private Health Insurance [facility] [id number] 2022-Present [address] [address] [place] [address] [id number] 1982 Unknown [id number] 1982 Unknown [id number] 1982 Unknown [id number] 1982 Unknown [id number] 1982 Unknown [id number] 1982 Unknown [id number] 1982 Unknown [id number] 1959 Unknown [id number] Unknown [id number] Social History Date Type Detail Facility Start: 04-24-2022 End: 04-19-2023 Tobacco smoking status Never smoked tobacco (finding) [facility] Tobacco smoking status Never [facility] Start: 04-16-2023 End: 09-28-2023 Sex Assigned At Female [facility] Start: 04-19-2023 Tobacco use and exposure Smokeless tobacco non-user [facility] Start: 09-07-2023 End: 09-28-2023 Alcohol intake Current drinker of alcohol (finding) [facility] Start: 04-16-2023 End: 09-28-2023 History of Social function [facility] Within the last year , have you been afraid of your partner or ex-partner? No [facility] Are you now , , , , never or living with a partner? [facility] How often to you hav e a drink containing alcohol? 2-4 times a month [facility] How many standard drinks containing alcohol do you have on a typical day? 3 or 4 [facility] How often do you hav e 6 or more drinks on 1 occasion? Never [facility] How hard is it for y ou to pay for the very basics like food, housing, medical care, and heating Somewhat hard [facility] Do you feel stress - tense, restless, nervous, or anxious, or unable to sleep at night because your mind is troubled all the time - these days [OSQ] Very much [facility] (I/We) worried wheth er (my/our) food would run out before (I/we) got money to buy more. Sometimes true [facility] Start: 04-30-2023 Alcohol Comment caffeine: 2-3 cups per day soda [facility] Start: 1980 Sex Assigned At Not on file [facility] Functional Status Date Assessment Result Facility 04-24-2022 Functional Status N/A [facility] History of Present illness Narrative 09-28-2023 Su Serna MD - 09/28/2023 9:00 AM EST Note Date & Type Note Facility 09-28-2023 History of Presen t illness Narrative Gómez Warren is a 43 y.o. female presents with chief complaint of No chief complaint on file. HPI: She is here for 4 week follow up. She had a CT done. She is fasting today if labs are needed. She states that her knee pain is the same. She got off the antibiotic for the Uti, has been off of it for about a week, but symptoms of foul smelling urine started 2 days ago, she states that is usually an indicator of her having a UTI. SUBJECTIVE: PAST MEDICAL HISTORY: Past Medical History: Diagnosis Date COVID-19 Depression ([facility]) Fibromyalgia Headache Pseudotumor MEDICATIONS: Current Outpatient Medications Medication Instructions acetaZOLAMIDE (Diamox) 250 MG tablet Take 2 tablets by mouth once daily. erenumab (Aimovig) 140 MG/ML injection inject 1 milliliter ( 140 milligrams ) subcutaneously Every Month famotidine (PEPCID) 20 mg, Oral, Nightly PRN hydrOXYzine pamoate (VISTARIL) 50 mg, Oral, 3 times daily Ibuprofen (MOTRIN PO) Motrin Multiple Vitamins-Minerals (MULTI FOR HER 50+ PO) Multi For Her SUMAtriptan (Imitrex) 100 MG tablet TAKE 1 TABLET BY MOUTH AT ONSET OF HEADACHE - MAY REPEAT IN 2 HOURS IF NEEDED - MAX 2 TABLETS IN 24 HOURS tiZANidine (Zanaflex) 4 MG tablet Take 2 tablets by mouth at bedtime as needed. ALLERGIES: Allergies Allergen Reactions Acetaminophen Other Reaction(s): due to contradiction Bupropion Other Reaction(s): Manic Hydrocodone Other Reaction(s): Vomiting Hydrocodone-Acetaminophen Other Reaction(s): nausea and vomiting Morphine Itching Pregabalin Other Reaction(s): suicidal SURGICAL HISTORY: Past Surgical History: Procedure Laterality Date APPENDECTOMY 05/2022 BACK SURGERY 2007 SECTION, CLASSIC 2002, 2004 DILATION AND CURETTAGE OF UTERUS 2004 HYSTERECTOMY 04/2023 TUBAL LIGATION Bilateral 2006 FAMILY HISTORY: Family History Problem Relation Name Age of Onset Heart attack Father SOCIAL HISTORY: Social History Tobacco Use Smoking status: Never Smokeless tobacco: Never Substance Use Topics Alcohol use: Yes Comment: caffeine: 2-3 cups per day soda Drug use: Never Depression: Not on file REVIEW OF SYMPTOMS: Review of Systems All other systems reviewed and are negative. OBJECTIVE: Visit Vitals BP 128/68 Pulse 69 Temp 97.4 F Resp 17 Ht 5' Wt 208 lb SpO2 97% BMI 40.62 kg/m Smoking Status Never BSA 2 m Physical Exam Constitutional: Appearance: Normal appearance. HENT: Head: Normocephalic. Eyes: Pupils: Pupils are equal, round, and reactive to light. Neck: Thyroid: No thyroid mass. Trachea: Trachea normal. Cardiovascular: Rate and Rhythm: Normal rate and regular rhythm. Heart sounds: No murmur heard. No gallop. Pulmonary: Effort: Pulmonary effort is normal. Breath sounds: Normal breath sounds. No wheezing or rhonchi. Chest: Chest wall: No tenderness. Abdominal: Palpations: Abdomen is soft. There is no mass. Tenderness: There is abdominal tenderness. There is no guarding. Musculoskeletal: General: Normal range of motion. Cervical back: Full passive range of motion without pain. Skin: General: Skin is warm and dry. Neurological: General: No focal deficit present. Mental Status: She is alert. Psychiatric: Mood and Affect: Mood normal. ASSESSMENT AND PLAN: Assessment/Plan Diagnoses and all orders for this visit: Acute cystitis without hematuria - nitrofurantoin, macrocrystal-monohydrate, (Macrobid) 100 MG capsule; Take 1 capsule (100 mg) by mouth in the morning and 1 capsule (100 mg) before bedtime. Do all this for 14 days. - URINARY TRACT INFECTION (HTRX); Future /Urine cultured. New medication as directed. Increase fluids. Good handwashing. Recommended probiotic while taking antibiotic. To ER for worsening of symptoms. Call office if symptoms have not started to improve within the next 72 hours. Patient verbalized understanding of instructions. Recommend d- mannose supplement Dysuria - URINARY TRACT INFECTION (HTRX); Future Malodorous urine - URINALYSIS ANALYZER TEST Intracranial hypertension Stable on current medication Other migraine without status migrainosus, not intractable (CMS/HCC) Meds as directed. Increase in headache frequency in the last month. Advised to take breaks from computer use and to get 7- 8 hrs sleep nightly. Also advised to practice lifestyle management examples include: taking breaks from computer and cell phone use, drinking 8 cups of water per day, wearing sunglasses in bright light, sleeping 7 hours or more per night, exercising and stretching regularly, practicing meditation and relaxation, eating healthy food, treating allergies and avoiding migraine triggers. Triggers vary, and may include: chocolate, gluten, dairy foods, and strong smells. Keep a diary of migraine triggers, examples; food, weather changes, environment, smoke exposure, lack of sleep, stressors. Bring log to next appointment to review with practitioner. RTC if migraines increase and unrelieved with medications and to discuss alternative medical treatments. Hx of hysterectomy Pelvic us negative Hx of gastritis Has upcoming GI apt in October Chronic diarrhea Has upcoming GI apt in October Knee pain, unspecified chronicity, unspecified laterality Recommend PT or possible ortho evlauation. For now supportive care. Reviewed xray- negative Hilar lymphadenopathy - Angiotensin converting enzyme; Future - Quantiferon TB Gold; Future - Pulmonary function testing Continues with sob with exertion. Reviewed CT- recommend further evaluation for hilar and mediastinal calcified lymph nodes- favoring granulomatous process. Check labs and PFTs- return to office to review results Left leg numbness On side of the knee pain- could be coming from lower back- she is going to schedule for OMT SOB (shortness of breath) - Pulmonary function testing Fibromyalgia Recommend exercise. Could look into metformin for off label use for management. Continue current medications. documented in this encounter [facility] Progress note 12-31-2020 Note Date & Type Note Facility 12-31-2020 Note HNO ID: [id number] Author: Kaleigh Venegas MD Service: ? Author Type: Physician Type: Progress Notes Filed: 01/01/2021 11:38 AM Note Text: [facility] [address] [place], [place] [address] SELF PCP: Sloan Wei, This is a 40 year old year old, Right handed woman who is here for the evaluation and management of the patient's Headache. The patient reports that she was diagnosed with migraine at age 18 and pseudotumor cerebri in 2011 by lumbar puncture. Her headache was under control until last year when her grandmother , She reports her pain is controlled with acetazolamide 250mg every day, imitrex 5-6 times a month however she noticed the medication is sedating and experience occipital headache and aimovig that brought down her headache frequency from 20/month to 4-5/month. Her headache is located in the bilateral frontal region that extends to her temporal region with left sided affected more than right side. Her main concern today is vertigo that was exacerbated by eye closing. The patient tried topamax but could not tolerate the mood changes caused by the medications. She reports that tizanidine improved her sleep as she also has fibromyalgia with pain in her left arm and shoulder. 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 She lost 20 lbs over the last month after Covid infection since November this year. 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 She endorsed depression and. CC: Headache HPI: Past medical history significant for: fibromyalgia and pseudotumor cerebri Age of onset of headaches: 18 How often are you having headaches/how many days of headaches in a week: 1-2 Are your headaches continuous/24 hours: yes Has there been an increase in headache frequency: no Do you have more severe episodes on top of regular headaches: no Headache location: bilateral frontal region Are your headaches always on one side: no Quality: pressure Duration of more severe headaches: hours What makes headaches worse: stress What makes headaches better: laying down and sleeping Any positional aspect to the headaches: No Associated symptoms: photophobia, phonophobia, osmophobia, nausea, vertigo, lightheaded, unsteadiness, blurred vision and right tinnitus Aura: no What medication do you use for headaches/ pain: sumatriptan How often do you use these medications in any given week: 1-2 Do you have any other pain symptoms anywhere else in your body: back pain, left arm and left leg Previous testing: CT brain - 06/17/2020 No acute intracranial pathology. There is 6 mm of downward displacement of the cerebellar tonsils with mild downward point of the tonsils suggesting Chiari I malformation. There is also mild flattening of the dome of the pituitary which is atypical for the patient's age and is occasionally noted in patients with elevated intracranial pressure. There is mild prominence of the CSF space along the head of the optic nerve on the right . Correlation with any clinical signs of elevated intracranial pressure/peudotumor cerebri is recommended. Prior Treatments: Triptans: Imitrex NSAIDS/Combination Analgesics: ibuprofen (Motrin) Other: tizanidine Current Medications: No current outpatient medications on file. No current facility-administered medications for this visit. . Allergies: ALLERGIES Not on File Family History: Migraine or other headaches in the family: Yes Mother Past Medical History: No past medical history on file. Past Surgical History No past surgical history on file. Social History: Social History Tobacco Use - Smoking status: Not on file Substance Use Topics - Alcohol use: Not on file - Drug use: Not on file ROS: REVIEW OF SYSTEMS GENERAL: No fever or malaise HEENT: SEE HPI NECK: Negative for lumps, goiter, pain and significant neck swelling RESPIRATORY: Negative for cough, hemoptysis, wheezing or shortness of breath CARDIOVASCULAR: Negative for chest pain, leg swelling or palpitations GI: nausea, diarrhea, constipation : No history of dysuria, frequency or incontinence MUSCULOSKELETAL: joint pain or swelling, back pain and muscle pain PSYCH: sleep fragmented, recent stressor at work ENDOCRINE: Negative for cold or heat intolerance, polyuria, polydipsia and goiter NEURO: Migraine headaches Physical Exam: Vital Signs: There were no vitals taken for this visit. General: in no acute distress, alert, overweight Pain Behaviors: no pain behaviors observed Skin: Color, texture, turgor normal. No rashes or lesions HEENT: Normocephalic/atraumatic. Cardiovascular: regular rhythm S1, S2 normal no murmur Lungs: normal breath sounds bilaterally Vascular: No cyanosis, clubbing or edema. , No carotid bruits. Musculoskeletal: No gross joint deformities. Neurological: Mental Status: Alert and oriented to per (more content not included)... [facility] Evaluation + Plan note Note Date & Type Note Facility Evaluation + Plan note No data available for this section [facility] Evaluation note Note Date & Type Note Facility Evaluation note Diagnosis Acute cystitis without hematuria- Primary Dysuria Malodorous urine Intracranial hypertension Benign intracranial hypertension Other migraine without status migrainosus, not intractable (CMS/HCC) Hx of hysterectomy Hx of gastritis Chronic diarrhea Diarrhea Knee pain, unspecified chronicity, unspecified laterality Hilar lymphadenopathy Enlargement of lymph nodes Left leg numbness Disturbance of skin sensation SOB (shortness of breath) Shortness of breath Fibromyalgia Unspecified myalgia and myositis documented in this encounter [facility] Discharge instructions Note Date & Type Note Facility Hospital Discharge instructions No data available for this section [facility] Progress note Note Date & Type Note Facility Progress note No data available for this section [facility] Summary Purpose Family History No Family History Records FoundNo Family History Records FoundNo Family History Records FoundNo Family History Records FoundNo Family History Records FoundNo Family History Records FoundNo Family History Records Found Advance Directives No Advanced Directives Records FoundNo Advanced Directives Records FoundNo Advanced Directives Records FoundNo Advanced Directives Records FoundNo Advanced Directives Records FoundNo Advanced Directives Records FoundNo Advanced Directives Records Found Additional Source Comments INFORMATION SOURCE (unrecogn ized section and content) DATE CREATED AUTHOR 09/03/2020 Arimaz DATE CREATED AUTHOR AUTHOR'S ORGANIZ ATION 2021 [facility] DATE CREATED AUTHOR AUTHOR'S ORGANIZ ATION 09/23/[address] 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 This clinical summary was aggregated from multiple sources. Caution should be exercised in using it in the provision of clinical care. This summary normalizes information from multiple sources, and as a consequence, information in this document may materially change the coding, format and clinical context of patient data. In addition, data may be omitted in some cases. CLINICAL DECISIONS SHOULD BE BASED ON THE PRIMARY CLINICAL RECORDS. [facility] [email or web address] provides no warranty or guarantee of the accuracy or completeness of information in this document.
[2023-10-25 15:08] LABS: Angiotensin-Converting Enzyme 43 U/L (14-82)
[2023-10-26 15:10] LABS: QuantiFERON-TB Gold Plus Negative (Negative)
== END 2023-10-23 11:47 | disposition home or self-care (01) ==
LOC: LAB 11:48
PROVIDERS: PCP Family Medicine; Visit Provider Family Medicine
DX: R59.0 Localized enlarged lymph nodes (principal); R30.0 Dysuria; N30.00 Acute cystitis without hematuria
CPT/HCPCS: 36415; 82164; 86480